=== PATIENT | female | born 1965 | race Caucasian/White ===

== ENCOUNTER 2016-06-15 17:43 | Inpatient (IN) | payer MEDICAID ==
[~2016-06-15] VITALS: Ht 157.5 cm; Wt 77.1 kg
[~2016-06-15 17:43] MED LIST: ATEN25TA PO; EPOE1VIA7 IV; GABA100C PO; MIRT15TA PO; NEOM15OI3 TP; VIT1TABL44 PO
[2016-06-15] MEDS ORDERED: ONDANSETRON HCL/PF 4 MG/2 ML VIAL IVP ONE (23:00)
[2016-06-15] MEDS ORDERED: IV NS 0.9% 1,000 ML BAG IV ONE (23:00)
[2016-06-15] MEDS ORDERED: IV NS 0.9% 1,000 ML ONE (23:07)
[2016-06-15] MEDS ORDERED: ONDANSETRON HCL/PF 4 MG/2 ML VIAL ONE (23:07)
[2016-06-15] MEDS ORDERED: IV SET PRIMARY 1 EA INFUS.SET MC ONE (23:07)
[2016-06-15 23:22] LABS: BASOPHILS # (AUTO) 0.1 /CMM (0.0-0.2); BASOPHILS % (AUTO) 0.9 % (0.0-2.0); DIFF TOTAL % 100 %; EOSINOPHILS % (AUTO) 0.2 % (0.0-6.0); HEMATOCRIT 30 % (33-45); HEMOGLOBIN 9.4 g/dL (11.5-14.8); LYMPHOCYTES # (AUTO) 2.1 /CMM (0.8-4.8); LYMPHOCYTES % (AUTO) 16.5 % (20.0-44.0); MEAN CORPUSCULAR HEMOGLOBIN 24 PG (26.0-33.0); MEAN CORPUSCULAR HGB CONC 31 g/dl (31.0-36.0); MEAN CORPUSCULAR VOLUME 76 fL (82-100); MONOCYTES % (AUTO) 7.8 % (2.0-12.0); NEUTROPHILS # (AUTO) 9.4 /CMM (1.8-8.9); NEUTROPHILS % (AUTO) 74.6 % (43.0-81.0); PLATELET COUNT (AUTO) 423 /CMM (150-450); RED BLOOD CELL COUNT(AUTO) 3.96 MIL/uL (4.0-5.2); WHITE BLOOD COUNT (AUTO) 12.6 K/uL (4.3-11.0)
[2016-06-15 23:33] LABS: CALCIUM, SERUM 8.7 mg/dL (8.5-10.1); CREATININE 2.4 mg/dL (0.6-1.3); POTASSIUM 4.6 mmol/L (3.5-5.1)
[2016-06-15 23:38] LABS: ALBUMIN 3.1 g/dL (3.4-5.0); BILIRUBIN,DIRECT 0.4 mg/dL (0.0-0.2); BILIRUBIN,TOTAL 1.1 mg/dL (0.2-1.0); INDIRECT BILIRUBIN 0.7 mg/dL (0.0-1.1); TOTAL PROTEIN, SERUM 7.2 g/dL (6.4-8.2)
[2016-06-15 23:58] LABS: KETONES,URINE NEGATIVE (NEGATIVE); LEUKOCYTE ESTERASE ,URINE TRACE (NEGATIVE)
[2016-06-16 00:03] LABS: ADD UA MICROSCOPIC YES
[2016-06-16 00:14] LABS: ADD URINE CULTURE YES
[2016-06-16] MEDS: CEFTRIAXONE 1 G in IV D5W 50 ML IV SCH (01:00)
[2016-06-16] MEDS ORDERED: MAG HYDROX/AL HYDROX/SIMETH 30 ML UDC PO PRN (01:00)
[2016-06-16] MEDS ORDERED: ONDANSETRON HCL/PF 4 MG/2 ML VIAL IVP PRN (01:00)
[2016-06-16] MEDS ORDERED: MAGNESIUM HYDROXIDE 30 ML UDC PO PRN (01:00)
[2016-06-16] MEDS ORDERED: ACETAMINOPHEN 325 MG TABLET PO PRN (01:00)
[2016-06-16] MEDS ORDERED: Z GUARD REMEDY 2 OZ OINT TP PRN (01:00)
[2016-06-16] MEDS ORDERED: ZOLPIDEM TARTRATE 5 MG TABLET PO PRN (01:00)
[2016-06-16] MEDS ORDERED: LORAZEPAM INJ 2 MG/ML VIAL ONE (01:24)
[2016-06-16] MEDS ORDERED: LORAZEPAM INJ 2 MG/ML VIAL IV ONE (01:30)
[2016-06-16 01:34] LABS: CANNABINOID, URINE NEGATIVE (NEGATIVE); INR 1.51 (0.87-1.13); PHENCYCLIDINE SCREEN,URINE NEGATIVE (NEGATIVE); PROTHROMBIN TIME 16.4 SECS (9.5-12.7)
[2016-06-16] MEDS ORDERED: FUROSEMIDE 20 MG/2 ML VIAL ONE (01:56)
[2016-06-16] MEDS ORDERED: FUROSEMIDE 20 MG/2 ML VIAL IV ONE (02:00)
[2016-06-16 02:59] VITALS: BP 107/56
[2016-06-16 03:24] LABS: ACETAMINOPHEN 4 ug/ml (10-30)
[2016-06-16] MEDS ORDERED: CEFTRIAXONE 1 G VIAL ONE (03:46)
[2016-06-16] MEDS ORDERED: IV D5W 50 ML IV ONE (03:47)
[2016-06-16] MEDS ORDERED: IV SET PRIMARY PUMP SET 1 EA INFUS.SET MC ONE ×2 (03:58→10:26)
[2016-06-16] MEDS ORDERED: SECONDARY IV SET 1 EA INFUS.SET MC ONE (03:58)
[2016-06-16] MEDS ORDERED: IV NS 0.9% 250 ML IV ONE (03:58)
[2016-06-16 05:25] VITALS: BP 154/111
[2016-06-16 08:00] VITALS: BP 151/86
[2016-06-16] MEDS ORDERED: IV NS 0.9% 1,000 ML IV ONE (10:30)
[2016-06-16] MEDS: NEOMY SULF/BACITRAC ZN/POLY 15 GM TUBE TP SCH (10:35)
[2016-06-16] MEDS: ATENOLOL 25 MG TABLET PO SCH (10:36)
[2016-06-16] MEDS: VIT B CMPLX 3/FA/VIT C/BIOTIN 1 TAB TABLET PO SCH (10:36)
[2016-06-16 12:00] VITALS: BP 131/114
[2016-06-16 16:00] VITALS: BP 158/103
[2016-06-16 20:00] VITALS: BP 143/101
[2016-06-16] MEDS: HYDROCODONE/APAP 5/325MG 1 EACH TABLET PO PRN (21:14)
[2016-06-16] MEDS: GABAPENTIN 100 MG CAPSULE PO SCH (21:42)
[2016-06-16] MEDS: MIRTAZAPINE 15 MG TABLET PO SCH (21:43)
[2016-06-16] MEDS ORDERED: IV NS 0.9% 0 ML ONE (21:55)
[2016-06-17] VITALS: BP_SYST 155; BP_SYST 156; BP_DIAS 100; BP_DIAS 99
[2016-06-17] MEDS: CEFTRIAXONE 1 G in IV D5W 50 ML IV SCH (00:39)
[2016-06-17 04:00] VITALS: BP 157/100
[2016-06-17] MEDS: HYDROCODONE/APAP 5/325MG 1 EACH TABLET PO PRN ×3 (04:47→16:04)
[2016-06-17 08:00] VITALS: BP 137/105
[2016-06-17 08:32] LABS: BASOPHILS # (AUTO) 0.1 /CMM (0.0-0.2); BASOPHILS % (AUTO) 1.2 % (0.0-2.0); DIFF TOTAL % 100 %; EOSINOPHILS % (AUTO) 0.3 % (0.0-6.0); HEMATOCRIT 31 % (33-45); HEMOGLOBIN 9.7 g/dL (11.5-14.8); LYMPHOCYTES # (AUTO) 1.9 /CMM (0.8-4.8); LYMPHOCYTES % (AUTO) 17.8 % (20.0-44.0); MEAN CORPUSCULAR HEMOGLOBIN 24 PG (26.0-33.0); MEAN CORPUSCULAR HGB CONC 31 g/dl (31.0-36.0); MEAN CORPUSCULAR VOLUME 77 fL (82-100); MONOCYTES % (AUTO) 9.5 % (2.0-12.0); NEUTROPHILS # (AUTO) 7.6 /CMM (1.8-8.9); NEUTROPHILS % (AUTO) 71.2 % (43.0-81.0); PLATELET COUNT (AUTO) 312 /CMM (150-450); RED BLOOD CELL COUNT(AUTO) 4.07 MIL/uL (4.0-5.2); WHITE BLOOD COUNT (AUTO) 10.7 K/uL (4.3-11.0)
[2016-06-17] MEDS: VIT B CMPLX 3/FA/VIT C/BIOTIN 1 TAB TABLET PO SCH (09:09)
[2016-06-17] MEDS: ATENOLOL 25 MG TABLET PO SCH (09:10)
[2016-06-17] MEDS: NEOMY SULF/BACITRAC ZN/POLY 15 GM TUBE TP SCH (09:18)
[2016-06-17 09:25] LABS: ALBUMIN 2.7 g/dL (3.4-5.0); BILIRUBIN,DIRECT 0.2 mg/dL (0.0-0.2); BILIRUBIN,TOTAL 0.6 mg/dL (0.2-1.0); CALCIUM, SERUM 8.3 mg/dL (8.5-10.1); CREATININE 2.4 mg/dL (0.6-1.3); INDIRECT BILIRUBIN 0.4 mg/dL (0.0-1.1); POTASSIUM 4.9 mmol/L (3.5-5.1); TOTAL PROTEIN, SERUM 6.6 g/dL (6.4-8.2)
[2016-06-17] MEDS: SEVELAMER CARBONATE 800 MG TABLET PO SCH ×2 (13:46→18:15)
[2016-06-17 16:00] VITALS: BP 140/89
[2016-06-17] MEDS: SODIUM BICARBONATE 650 MG TABLET PO SCH (18:15)
[2016-06-17 20:00] VITALS: BP 147/88
[2016-06-17 21:14] VITALS: BP 147/88
[2016-06-17] MEDS: GABAPENTIN 100 MG CAPSULE PO SCH (22:03)
[2016-06-17] MEDS: MIRTAZAPINE 15 MG TABLET PO SCH (22:04)
[2016-06-18] VITALS (7 sets, daily range): BP systolic 130–147; BP diastolic 77–98
[2016-06-18] MEDS: CEFTRIAXONE 1 G in IV D5W 50 ML IV SCH (01:01)
[2016-06-18] MEDS: HYDROCODONE/APAP 5/325MG 1 EACH TABLET PO PRN ×3 (01:04→18:01)
[2016-06-18] MEDS: SEVELAMER CARBONATE 800 MG TABLET PO SCH ×3 (09:07→17:00)
[2016-06-18] MEDS: SODIUM BICARBONATE 650 MG TABLET PO SCH ×2 (09:07→17:00)
[2016-06-18] MEDS: VIT B CMPLX 3/FA/VIT C/BIOTIN 1 TAB TABLET PO SCH (09:07)
[2016-06-18] MEDS: ATENOLOL 25 MG TABLET PO SCH (09:08)
[2016-06-18] MEDS: NEOMY SULF/BACITRAC ZN/POLY 15 GM TUBE TP SCH (09:09)
[2016-06-18] MEDS: EPOETIN ALFA (10,000 UNIT) 10,000 UNIT/ML VIAL IV SCH (16:58)
[2016-06-18] MEDS: QUETIAPINE FUMARATE 25 MG TABLET PO SCH (16:59)
[2016-06-18] MEDS ORDERED: HYDROMORPHONE MDV 1 MG in IV D5W 50 ML IV PRN (19:00)
[2016-06-18] MEDS ORDERED: HYDROMORPHONE 1 MG/1 ML DISP.SYRIN IV PRN (19:00)
[2016-06-18] MEDS ORDERED: ACETYLCYSTEINE IV 4,000 MG in IV D5W 500 ML IV ONE ×2 (20:00→22:00)
[2016-06-18] MEDS ORDERED: ACETYLCYSTEINE IV 12,000 MG in IV D5W 200 ML IV ONE (21:00)
[2016-06-18] MEDS ORDERED: IV SET PRIMARY PUMP SET 1 EA INFUS.SET MC ONE (21:35)
[2016-06-18] MEDS: GABAPENTIN 100 MG CAPSULE PO SCH (22:26)
[2016-06-18] MEDS: MIRTAZAPINE 15 MG TABLET PO SCH (22:27)
[2016-06-19] MEDS ORDERED: ACETYLCYSTEINE IV 8,000 MG in IV D5W 1,000 ML IV ONE (02:00)
[2016-06-19] MEDS: CEFTRIAXONE 1 G in IV D5W 50 ML IV SCH (02:45)
[2016-06-19 04:00] VITALS: BP 128/98
[2016-06-19 06:53] LABS: BASOPHILS % (AUTO) 0.1 % (0.0-2.0); DIFF TOTAL % 100 %; EOSINOPHILS # (AUTO) 0.1 /CMM (0.0-0.7); EOSINOPHILS % (AUTO) 0.8 % (0.0-6.0); HEMATOCRIT 33 % (33-45); HEMOGLOBIN 10.6 g/dL (11.5-14.8); LYMPHOCYTES # (AUTO) 1.7 /CMM (0.8-4.8); MEAN CORPUSCULAR HEMOGLOBIN 24 PG (26.0-33.0); MEAN CORPUSCULAR HGB CONC 32 g/dl (31.0-36.0); MEAN CORPUSCULAR VOLUME 76 fL (82-100); MONOCYTES # (AUTO) 0.7 /CMM (0.1-1.30); MONOCYTES % (AUTO) 6.3 % (2.0-12.0); NEUTROPHILS # (AUTO) 8.9 /CMM (1.8-8.9); NEUTROPHILS % (AUTO) 77.8 % (43.0-81.0); PLATELET COUNT (AUTO) 231 /CMM (150-450); RED BLOOD CELL COUNT(AUTO) 4.37 MIL/uL (4.0-5.2); WHITE BLOOD COUNT (AUTO) 11.4 K/uL (4.3-11.0)
[2016-06-19 07:27] LABS: CALCIUM, SERUM 8.4 mg/dL (8.5-10.1); POTASSIUM 4.1 mmol/L (3.5-5.1)
[2016-06-19 08:00] VITALS: BP_SYST 155; BP_SYST 158; BP_DIAS 90
[2016-06-19] MEDS: SODIUM BICARBONATE 650 MG TABLET PO SCH ×2 (08:43→17:50)
[2016-06-19] MEDS: VIT B CMPLX 3/FA/VIT C/BIOTIN 1 TAB TABLET PO SCH (08:43)
[2016-06-19] MEDS: SEVELAMER CARBONATE 800 MG TABLET PO SCH ×3 (08:43→17:50)
[2016-06-19] MEDS: QUETIAPINE FUMARATE 25 MG TABLET PO SCH ×2 (08:44→17:50)
[2016-06-19] MEDS: ATENOLOL 25 MG TABLET PO SCH (08:45)
[2016-06-19] MEDS: NEOMY SULF/BACITRAC ZN/POLY 15 GM TUBE TP SCH (08:46)
[2016-06-19 16:00] VITALS: BP 143/102
[2016-06-19 16:35] VITALS: BP 143/102
[2016-06-19] MEDS: LACTULOSE 10 G/15 ML UDC (PYXIS) PO SCH (17:51)
[2016-06-19 20:00] VITALS: BP 164/63
[2016-06-19] MEDS: GABAPENTIN 100 MG CAPSULE PO SCH (21:27)
[2016-06-19 22:00] VITALS: BP 164/63
[2016-06-20] MEDS: CEFTRIAXONE 1 G in IV D5W 50 ML IV SCH (01:00)
[2016-06-20 06:20] LABS: HEPATITIS C VIRUS AB 0.2 s/co ratio (0.0-0.9)
[2016-06-20 07:44] LABS: ALBUMIN 2.4 g/dL (3.4-5.0); BILIRUBIN,DIRECT 0.1 mg/dL (0.0-0.2); BILIRUBIN,TOTAL 0.4 mg/dL (0.2-1.0); INDIRECT BILIRUBIN 0.3 mg/dL (0.0-1.1); TOTAL PROTEIN, SERUM 6.4 g/dL (6.4-8.2)
[2016-06-20 08:00] VITALS: BP 144/99
[2016-06-20] MEDS: SEVELAMER CARBONATE 800 MG TABLET PO SCH ×3 (09:19→18:11)
[2016-06-20] MEDS: QUETIAPINE FUMARATE 25 MG TABLET PO SCH ×2 (09:19→18:11)
[2016-06-20] MEDS: SODIUM BICARBONATE 650 MG TABLET PO SCH ×2 (09:20→18:11)
[2016-06-20] MEDS: ATENOLOL 25 MG TABLET PO SCH (09:20)
[2016-06-20] MEDS: VIT B CMPLX 3/FA/VIT C/BIOTIN 1 TAB TABLET PO SCH (09:20)
[2016-06-20] MEDS: LACTULOSE 10 G/15 ML UDC (PYXIS) PO SCH ×3 (09:20→17:00)
[2016-06-20] MEDS: NEOMY SULF/BACITRAC ZN/POLY 15 GM TUBE TP SCH (09:21)
[2016-06-20 14:50] LABS: BASOPHILS % (AUTO) 0.4 % (0.0-2.0); DIFF TOTAL % 100 %; EOSINOPHILS # (AUTO) 0.2 /CMM (0.0-0.7); EOSINOPHILS % (AUTO) 2.3 % (0.0-6.0); HEMATOCRIT 33 % (33-45); LYMPHOCYTES # (AUTO) 1.3 /CMM (0.8-4.8); LYMPHOCYTES % (AUTO) 12.2 % (20.0-44.0); MEAN CORPUSCULAR HEMOGLOBIN 24 PG (26.0-33.0); MEAN CORPUSCULAR HGB CONC 30 g/dl (31.0-36.0); MEAN CORPUSCULAR VOLUME 77 fL (82-100); MONOCYTES # (AUTO) 0.8 /CMM (0.1-1.30); MONOCYTES % (AUTO) 7.6 % (2.0-12.0); NEUTROPHILS # (AUTO) 8.3 /CMM (1.8-8.9); NEUTROPHILS % (AUTO) 77.5 % (43.0-81.0); PLATELET COUNT (AUTO) 229 /CMM (150-450); RED BLOOD CELL COUNT(AUTO) 4.25 MIL/uL (4.0-5.2); WHITE BLOOD COUNT (AUTO) 10.7 K/uL (4.3-11.0)
[2016-06-20 16:00] VITALS: BP 157/91
[2016-06-20] MEDS: EPOETIN ALFA (10,000 UNIT) 10,000 UNIT/ML VIAL IV SCH (16:24)
[2016-06-20 20:00] VITALS: BP 144/87
[2016-06-20] MEDS: GABAPENTIN 100 MG CAPSULE PO SCH (22:08)
[2016-06-21] MEDS: CEFTRIAXONE 1 G in IV D5W 50 ML IV SCH (00:55)
[2016-06-21 08:00] VITALS: BP 173/93
[2016-06-21] MEDS: SEVELAMER CARBONATE 800 MG TABLET PO SCH ×4 (08:00→17:49)
[2016-06-21] MEDS: VIT B CMPLX 3/FA/VIT C/BIOTIN 1 TAB TABLET PO SCH ×2 (08:13→08:19)
[2016-06-21] MEDS: QUETIAPINE FUMARATE 25 MG TABLET PO SCH ×2 (08:13→17:48)
[2016-06-21] MEDS: SODIUM BICARBONATE 650 MG TABLET PO SCH ×3 (08:14→17:00)
[2016-06-21] MEDS: LACTULOSE 10 G/15 ML UDC (PYXIS) PO SCH ×4 (08:14→17:00)
[2016-06-21] MEDS: ATENOLOL 25 MG TABLET PO SCH (08:14)
[2016-06-21] MEDS: NEOMY SULF/BACITRAC ZN/POLY 15 GM TUBE TP SCH (08:15)
[2016-06-21 08:19] LABS: *ANAANTI-SCLERODERMA-70 AB <0.2 AI (0.0-0.9)
[2016-06-21 10:00] LABS: IRON, SERUM 16 ug/dl (50-175); PERCENT SATURATION 6 % (14-33); TOTAL IRON BINDING CAPACITY 251 ug/dl (250-450)
[2016-06-21 10:10] VITALS: BP 145/101
[2016-06-21] MEDS: TRAMADOL HCL 50 MG TABLET PO PRN (17:49)
[2016-06-21 20:23] VITALS: BP 143/104
[2016-06-21] MEDS: GABAPENTIN 100 MG CAPSULE PO SCH (22:01)
[2016-06-22 08:00] VITALS: BP 159/107
[2016-06-22] MEDS: SEVELAMER CARBONATE 800 MG TABLET PO SCH ×3 (08:00→17:04)
[2016-06-22] MEDS: VIT B CMPLX 3/FA/VIT C/BIOTIN 1 TAB TABLET PO SCH (09:00)
[2016-06-22] MEDS: SODIUM BICARBONATE 650 MG TABLET PO SCH ×2 (09:00→17:00)
[2016-06-22] MEDS: NEOMY SULF/BACITRAC ZN/POLY 15 GM TUBE TP SCH (09:00)
[2016-06-22] MEDS: LACTULOSE 10 G/15 ML UDC (PYXIS) PO SCH ×3 (09:00→17:00)
[2016-06-22] MEDS: ATENOLOL 25 MG TABLET PO SCH (09:14)
[2016-06-22] MEDS: QUETIAPINE FUMARATE 25 MG TABLET PO SCH ×2 (09:14→17:00)
[2016-06-22] MEDS: TRAMADOL HCL 50 MG TABLET PO PRN (12:18)
[2016-06-22 15:28] LABS: HEMOGLOBIN 10.8 g/dL (11.5-14.8)
[2016-06-22 16:00] VITALS: BP 163/117
[2016-06-22 20:00] VITALS: BP 152/109
[2016-06-22] MEDS: GABAPENTIN 100 MG CAPSULE PO SCH (21:34)
[2016-06-23] MEDS: CEFTRIAXONE 1 G in IV D5W 50 ML IV SCH (01:00)
[2016-06-23] MEDS: TRAMADOL HCL 50 MG TABLET PO PRN (04:22)
[2016-06-23 08:00] VITALS: BP_SYST 120; BP_SYST 165; BP_DIAS 114; BP_DIAS 73
[2016-06-23] MEDS: SEVELAMER CARBONATE 800 MG TABLET PO SCH ×3 (08:47→18:00)
[2016-06-23] MEDS: LACTULOSE 10 G/15 ML UDC (PYXIS) PO SCH ×3 (09:00→17:00)
[2016-06-23] MEDS: VIT B CMPLX 3/FA/VIT C/BIOTIN 1 TAB TABLET PO SCH (09:00)
[2016-06-23] MEDS: SODIUM BICARBONATE 650 MG TABLET PO SCH ×2 (09:00→17:00)
[2016-06-23] MEDS: QUETIAPINE FUMARATE 25 MG TABLET PO SCH ×2 (10:41→17:00)
[2016-06-23] MEDS: ATENOLOL 25 MG TABLET PO SCH (10:43)
[2016-06-23] MEDS: NEOMY SULF/BACITRAC ZN/POLY 15 GM TUBE TP SCH (10:45)
[2016-06-23 16:00] VITALS: BP 168/119
[2016-06-23] MEDS: GABAPENTIN 100 MG CAPSULE PO SCH (21:22)
[2016-06-23 21:51] VITALS: BP 154/111
[2016-06-24] MEDS: CEFTRIAXONE 1 G in IV D5W 50 ML IV SCH (01:00)
[2016-06-24 08:00] VITALS: BP 160/123
[2016-06-24] MEDS: SEVELAMER CARBONATE 800 MG TABLET PO SCH ×3 (08:00→17:05)
[2016-06-24] MEDS: VIT B CMPLX 3/FA/VIT C/BIOTIN 1 TAB TABLET PO SCH (08:39)
[2016-06-24] MEDS: LACTULOSE 10 G/15 ML UDC (PYXIS) PO SCH ×3 (08:39→16:20)
[2016-06-24] MEDS: SODIUM BICARBONATE 650 MG TABLET PO SCH ×2 (08:40→16:21)
[2016-06-24] MEDS: QUETIAPINE FUMARATE 25 MG TABLET PO SCH ×2 (08:40→16:20)
[2016-06-24] MEDS: NEOMY SULF/BACITRAC ZN/POLY 15 GM TUBE TP SCH (08:40)
[2016-06-24] MEDS: ATENOLOL 25 MG TABLET PO SCH (08:41)
[2016-06-24] MEDS: HYDROCODONE/APAP 5/325MG 1 EACH TABLET PO PRN (13:05)
[2016-06-24 16:31] VITALS: BP 143/107
[2016-06-24 20:00] VITALS: BP 148/99
[2016-06-24] MEDS: GABAPENTIN 100 MG CAPSULE PO SCH (22:43)
[2016-06-25] MEDS: CEFTRIAXONE 1 G in IV D5W 50 ML IV SCH (01:00)
[2016-06-25 08:00] VITALS: BP 146/107
[2016-06-25] MEDS: SEVELAMER CARBONATE 800 MG TABLET PO SCH ×3 (08:00→17:24)
[2016-06-25] MEDS: QUETIAPINE FUMARATE 25 MG TABLET PO SCH ×2 (08:32→16:24)
[2016-06-25] MEDS: NEOMY SULF/BACITRAC ZN/POLY 15 GM TUBE TP SCH (08:32)
[2016-06-25] MEDS: SODIUM BICARBONATE 650 MG TABLET PO SCH ×2 (08:32→16:24)
[2016-06-25] MEDS: LACTULOSE 10 G/15 ML UDC (PYXIS) PO SCH ×3 (08:32→16:24)
[2016-06-25] MEDS: VIT B CMPLX 3/FA/VIT C/BIOTIN 1 TAB TABLET PO SCH (08:32)
[2016-06-25] MEDS: ATENOLOL 25 MG TABLET PO SCH (08:34)
[2016-06-25] MEDS: HYDROCODONE/APAP 5/325MG 1 EACH TABLET PO PRN (13:35)
[2016-06-25 16:00] VITALS: BP_SYST 151; BP_SYST 157; BP_DIAS 105
[2016-06-25 20:00] VITALS: BP 164/99
[2016-06-25] MEDS: GABAPENTIN 100 MG CAPSULE PO SCH (21:19)
[2016-06-26] MEDS: HYDROCODONE/APAP 5/325MG 1 EACH TABLET PO PRN (02:59)
[2016-06-26] MEDS: SEVELAMER CARBONATE 800 MG TABLET PO SCH ×2 (07:57→13:00)
[2016-06-26 08:00] VITALS: BP 165/80
[2016-06-26] MEDS: LACTULOSE 10 G/15 ML UDC (PYXIS) PO SCH ×2 (08:48→13:00)
[2016-06-26] MEDS: NEOMY SULF/BACITRAC ZN/POLY 15 GM TUBE TP SCH (08:49)
[2016-06-26] MEDS: QUETIAPINE FUMARATE 25 MG TABLET PO SCH (08:49)
[2016-06-26] MEDS: VIT B CMPLX 3/FA/VIT C/BIOTIN 1 TAB TABLET PO SCH (08:49)
[2016-06-26] MEDS: SODIUM BICARBONATE 650 MG TABLET PO SCH (08:49)
[2016-06-26] MEDS: ATENOLOL 25 MG TABLET PO SCH (08:49)
== END 2016-06-26 14:20 | disposition home or self-care (01) ==
LOC: ER 17:45 → MED 06-16 → TELE 06-16 05:03 → MED 06-17 12:45
PROVIDERS: ADMIT Family Medicine; ATTEND Family Medicine
DX: K71.2 Toxic liver disease with acute hepatitis (principal); I13.2 Hypertensive heart and chronic kidney disease with heart failure and with stage 5 chronic kidney disease, or end stage renal disease; G92 Toxic encephalopathy; E43 Unspecified severe protein-calorie malnutrition; N18.6 End stage renal disease; E87.2 Acidosis; F17.210 Nicotine dependence, cigarettes, uncomplicated; D50.9 Iron deficiency anemia, unspecified; E11.22 Type 2 diabetes mellitus with diabetic chronic kidney disease; N39.0 Urinary tract infection, site not specified; I50.32 Chronic diastolic (congestive) heart failure; Z99.2 Dependence on renal dialysis; E83.39 Other disorders of phosphorus metabolism; E87.1 Hypo-osmolality and hyponatremia; I25.10 Atherosclerotic heart disease of native coronary artery without angina pectoris; Z59.0 Homelessness; Z86.73 Personal history of transient ischemic attack (TIA), and cerebral infarction without residual deficits; Z91.19 Patient's noncompliance with other medical treatment and regimen; I25.2 Old myocardial infarction; R74.0 Nonspecific elevation of levels of transaminase and lactic acid dehydrogenase [LDH]; E88.09 Other disorders of plasma-protein metabolism, not elsewhere classified; M62.50 Muscle wasting and atrophy, not elsewhere classified, unspecified site; T39.1X5A Adverse effect of 4-Aminophenol derivatives, initial encounter; Y92.9 Unspecified place or not applicable; Z68.31 Body mass index [BMI] 31.0-31.9, adult; F12.90 Cannabis use, unspecified, uncomplicated; F33.1 Major depressive disorder, recurrent, moderate; Y92.009 Unspecified place in unspecified non-institutional (private) residence as the place of occurrence of the external cause
CPT/HCPCS: 36415; 73030-TC; 76705-TC; 80048-TC; 80061-TC; 80076-TC; 81000-TC; 82140-TC; 83516; 83540-TC; 83690-TC; 83735-TC; 84100-TC; 85025-TC; 85027-TC; 85610-TC; 85730-TC; 86225; 86235; 86705; 86706; 86709; 86803; 87081-TC; 87086-TC; 87340; 93976-TC; 94799-TC; 97001-TC; 97110-TC; A4606; G0434; G6039-TC; J0132; J0696; J0885; J1170; J1940; J2060; J2405; J7030; J7050; J7060; J7070; Z7610

== ENCOUNTER 2017-08-11 20:01 | Inpatient (IN) | payer MEDICAID ==
[~2017-08-11] VITALS: Ht 165.1 cm; Wt 60.3 kg
[~2017-08-11 20:01] MED LIST changes: -EPOE1VIA7 IV; -NEOM15OI3 TP; -VIT1TABL44 PO
--- NOTE | 2017-08-11 20:01 | NUR ---
BBRA FROM STREETS PT C/O BURNING SENSATION ON THE BUTTOCKS FOR PROLONGED ON WHEELCHAIR. NO SOB AT THIS MOMENT BUT PAIN 02/24. A/OX3 TACHYCARDIC UPON ARRIVAL BUT OTHERWISE VSS. PT IS VERY AGITATED SCREAMING W/ FOUL ODOR. WILL CONTINUE TO MONITOR FOR ANY CHANGES DURING THE SHIFT.
[2017-08-11] MEDS ORDERED: IV NS 0.9% 1,000 ML BAG IV ONE (20:30)
[2017-08-11] MEDS ORDERED: ONDANSETRON HCL/PF 4 MG/2 ML VIAL IVP ONE (20:30)
[2017-08-11] MEDS ORDERED: MORPHINE SULFATE INJ 2 MG/ML DISP.SYRIN IV ONE (20:30)
--- NOTE | 2017-08-11 20:30 | NUR ---
CLEANED PATIENT OF FECES AMONG OTHER SKIN ISSUES ON BODY. IN/OUT CATH FOR URINE WAS CARRIED OUT WELL
[2017-08-11] MEDS ORDERED: diphenhydrAMINE HCL 50 MG/ML VIAL ONE (20:46)
[2017-08-11] MEDS ORDERED: HALOPERIDOL LACTATE INJ 5 MG/ML VIAL ONE (20:46)
[2017-08-11 20:47] LABS: BASOPHILS # (AUTO) 0.1 /CMM (0.0-0.2); BASOPHILS % (AUTO) 0.7 % (0.0-2.0); EOSINOPHILS # (AUTO) 0.2 /CMM (0.0-0.7); EOSINOPHILS % (AUTO) 1.3 % (0.0-6.0); HEMATOCRIT 34 % (33-45); HEMOGLOBIN 11.2 g/dL (11.5-14.8); LYMPHOCYTES # (AUTO) 1.5 /CMM (0.8-4.8); LYMPHOCYTES % (AUTO) 12.9 % (20.0-44.0); MEAN CORPUSCULAR HEMOGLOBIN 24 PG (26.0-33.0); MEAN CORPUSCULAR HGB CONC 33 g/dl (31.0-36.0); MEAN CORPUSCULAR VOLUME 74 fL (82-100); MONOCYTES # (AUTO) 0.6 /CMM (0.1-1.30); MONOCYTES % (AUTO) 5.4 % (2.0-12.0); NEUTROPHILS # (AUTO) 9.6 /CMM (1.8-8.9); NEUTROPHILS % (AUTO) 79.7 % (43.0-81.0); PLATELET COUNT (AUTO) 676 /CMM (150-450); RDW COEFFICIENT OF VARIATION 15.8 (11.5-15.0); RED BLOOD CELL COUNT(AUTO) 4.61 MIL/uL (4.0-5.2)
[2017-08-11 20:55] LABS: CALCIUM, SERUM 9.1 mg/dL (8.5-10.1); CREATININE 1.4 mg/dL (0.6-1.3); INR 1.05 (0.85-1.15); POTASSIUM 4.2 mmol/L (3.5-5.1)
[2017-08-11] MEDS ORDERED: HALOPERIDOL LACTATE INJ 5 MG/ML VIAL IM ONE (21:00)
[2017-08-11] MEDS ORDERED: diphenhydrAMINE HCL 50 MG/ML VIAL IM ONE (21:00)
[2017-08-11 21:01] LABS: APPEARANCE,URINE Clear (CLEAR); BILIRUBIN,URINE Negative (NEGATIVE); BLOOD, URINE Trace-lysed Ery/uL (NEGATIVE); COLOR,URINE Yellow (YELLOW); KETONES,URINE Negative (NEGATIVE); LEUKOCYTE ESTERASE ,URINE Negative (NEGATIVE); NITRITE, URINE Positive (NEGATIVE); PROTEIN,URINE Negative (NEGATIVE); UGLUCOSE Negative (NEGATIVE); UROBILINOGEN,URINE 0.2 EU/dL (0.2)
[2017-08-11 21:07] LABS: ALBUMIN 2.9 g/dL (3.4-5.0); BILIRUBIN,DIRECT 0.2 mg/dL (0.0-0.2); BILIRUBIN,TOTAL 0.6 mg/dL (0.2-1.0); TOTAL PROTEIN, SERUM 8.3 g/dL (6.4-8.2)
[2017-08-11 21:14] LABS: SQUAMOUS EPITHELIAL CELL,UR Few /HPF (None Seen)
[2017-08-11 21:16] LABS: BACTERIA,URINE Many /HPF (None Seen); URINE AMORPHOUS URATE Many /HPF (None Seen)
[2017-08-11] MEDS ORDERED: CEFTRIAXONE 2 G in IV D5W 50 ML IV ONE (21:30)
[2017-08-11] MEDS ORDERED: CEFTRIAXONE 1 G VIAL ONE (21:33)
--- NOTE | 2017-08-11 22:00 | NUR ---
PAGED EPIC FOR PANEL
--- NOTE | 2017-08-11 22:04 | NUR ---
FRUIT PITTER AT BEDSIDE FOR BLOOD DRAW
[2017-08-11 22:06] LABS: LYMPHOCYTES % (MANUAL) 17 % (16-48); MONOCYTES % (MANUAL) 3 % (0-11.0); NEUTROPHILS % (MANUAL) 80 (42-76)
--- NOTE | 2017-08-11 22:09 | NUR ---
CALLED NURSE SUP FOR MESURG BED
--- NOTE | 2017-08-11 22:28 | NUR ---
REPORT GIVEN TO LEIDY
[2017-08-11 23:00] VITALS: BP_SYST 117; BP_DIAS 76; BP_DIAS 78
--- NOTE | 2017-08-11 23:00 | NUR ---
MS MASTER MECHANIC NOTES ADMITTED 51 YO FEMALE HOMELESS PT ALERT, AWAKE, VERBALLY RESPONSIVE, ON ROOM AIR, RESPIRATIONS EVEN, UNLABORED, NO APPARENT DISTRESS NOTED. BODY ASSESSMENT DONE, NOTED MULTIPLE EXCORIATIONS.IV SITE RT AC INTACT, PATENT. DENIES ANY PAIN OR DISCOMFORT AT THIS TIME. BED LOCKED IN LOWEST POSITION, KEPT CLEAN AND COMFORTABLE, ATTENDED ALL NEEDS. WILL CONTINUE TO MONITOR ACCORDINGLY.
[2017-08-12] MEDS ORDERED: ONDANSETRON HCL/PF 4 MG/2 ML VIAL IVP PRN (00:30)
[2017-08-12] MEDS ORDERED: Z GUARD REMEDY 2 OZ OINT TP PRN (00:30)
[2017-08-12] MEDS ORDERED: MAGNESIUM HYDROXIDE 30 ML UDC PO PRN (00:30)
[2017-08-12] MEDS ORDERED: ACETAMINOPHEN 325 MG TABLET PO PRN (00:30)
[2017-08-12] MEDS ORDERED: MAG HYDROX/AL HYDROX/SIMETH 30 ML UDC PO PRN (00:30)
[2017-08-12] MEDS ORDERED: ZOLPIDEM TARTRATE 5 MG TABLET PO PRN (00:30)
[2017-08-12] MEDS: IV NS 0.9% 1,000 ML IV PRN ×2 (01:50→15:20)
[2017-08-12] MEDS: HYDROCODONE/APAP 5/325MG 1 EACH TABLET PO PRN ×2 (02:39→17:11)
--- NOTE | 2017-08-12 06:53 | NUR ---
MS RN CLOSING NOTES PT IN BED RESTING COMFORTABLY, ON ROOM AIR, RESPIRATIONS EVEN, UNLABORED. DENIES ANY PAIN OR DISCOMFORT AT THIS TIME, IV SITE LT AC INTACT, PATENT.CALL LIGHT WITHIN REACH. BED LOCKED IN LOWEST POSITION. KEPT CLEAN AND COMFORTABLE.ATTENDED ALL NEEDS. WILL CONTINUE TO MONITOR ACCORDINGLY
--- NOTE | 2017-08-12 07:05 | NUR ---
RN NOTES PT IS LAYING DOWN IN BED, ASLEEP. PT ON RA, RESPIRATIONS ARE EVEN AND UNLABORED. IV ON LAC INTACT AND RUNNING NS @ 75ML/HR. NO SIGNS OF DISTRESS NOTED. SAFETY MEASURES ARE IN PLACE, CALL LIGHT IS IN REACH. WILL CONTINUE TO MONITOR.
[2017-08-12 08:00] VITALS: BP 131/93
--- NOTE | 2017-08-12 15:53 | NUR ---
Social service consult requested by Dr. Valencia for homelessness. Pt. is a 51 year old female who was admitted to [facility] for renal insufficiency and UTI. SW and case reviewer Harsha met with pt. bedside. Pt. is alert and oriented x 3. SW is familiar with pt. from previous admissions. Pt. is homeless and resides at a [place] station. Pt. is non-ambulatory and wheelchair bound. Pt. states that she cannot talk at this time because she is in lot of pain. SW to reassess pt. when she is more cooperative to discuss discharge plan.
[2017-08-12 16:00] VITALS: BP 127/83
--- NOTE | 2017-08-12 18:26 | NUR ---
RN NOTES PT IS LAYING DOWN IN BED, ALERT AND ORIENTED X3. PT ON RA, RESPIRATIONS ARE EVEN AND UNLABORED. IV ON LAC INTACT AND RUNNING NS @ 75ML/HR. PT PROVIDED WITH SKIN CARE AND LOTRIMIN CREAM ORDERED FOR EXCORIATIONS ON GROIN AND THIGHS. NORCO WAS GIVEN LAST @ 1711 FOR PAIN. PT REPOSITIONED Q2HRS AND NEEDED. SAFETY MEASURES ARE IN PLACE, CALL LIGHT IS IN REACH. WILL ENDORSE TO CHIP BIN CONVEYOR TENDER RN FOR CONTINUITY OF CARE.
[2017-08-12] MEDS: CLOTRIMAZOLE 1% 15 GM TUBE TP SCH (18:41)
--- NOTE | 2017-08-12 19:15 | NUR ---
RN OPENING NOTES PT AWAKE AND RESTING IN BED NO COMPLAINTS OF PAIN, SOB OR DISTRESS AT THIS TIME. PT HAS A LEFT AC IV #18 RUNNING NS @ 75ML/HR, PT TOLERATING FLUID WELL. SAFETY PRECAUTIONS IN PLACE. BED IN LOW, LOCKED POSITION, X2 SIDE RAILS UP AND CALL LIGHT WITHIN REACH. WILL CONTINUE TO MONITOR.
--- NOTE | 2017-08-12 19:30 | NUR ---
RN NOTES PT REFUSED WOUND CARE CONSULT.
[2017-08-12 20:00] VITALS: BP 121/76
[2017-08-12] MEDS: CEFTRIAXONE 1 G in IV NS 0.9% 50 ML IV SCH (20:22)
[2017-08-12 20:24] LABS: IRON, SERUM 19 ug/dl (50-175); TOTAL IRON BINDING CAPACITY 177 ug/dl (250-450)
[2017-08-12 20:40] LABS: FERRITIN 95 ng/mL (8-388)
[2017-08-13] MEDS: HYDROCODONE/APAP 5/325MG 1 EACH TABLET PO PRN ×5 (01:16→23:27)
--- NOTE | 2017-08-13 01:16 | NUR ---
RN NOTES PT COMPLAINED OF BACK PAIN. ADMINISTERED PRN NORCO 5 325MG. WILL CONTINUE TO MONITOR.
[2017-08-13] MEDS: IV NS 0.9% 1,000 ML IV PRN ×2 (05:25→20:38)
--- NOTE | 2017-08-13 07:05 | NUR ---
RN NOTES PT IS LAYING DOWN IN BED, SLEEPING. PT ON RA, RESPIRATIONS ARE EVEN AND UNLABORED. IV ON LAC INTACT AND RUNNING NS @ 75ML/HR. NO SIGNS OF DISTRESS NOTED. SAFETY MEASURES ARE IN PLACE, CALL LIGHT IS IN REACH. WILL CONTINUE TO MONITOR.
--- NOTE | 2017-08-13 07:30 | NUR ---
RN CLOSING NOTES PT AWAKE IN BED. PT REQUESTED TO BE TURNED CONTINUOUSLY. PT REFUSED LAB BLOOD DRAW. PT HAS A LEFT AC IV #18 RUNNING NS @ 75ML/HR, PT TOLERATING FLUID WELL. SAFETY PRECAUTIONS IN PLACE. BED IN LOW, LOCKED POSITION, X2 SIDE RAILS UP AND CALL LIGHT WITHIN REACH. PT NEEDS MET. WILL ENDORSE TO DAY SHIFT NURSE FOR CONTINUITY OF CARE.
[2017-08-13 08:00] VITALS: BP 143/75
[2017-08-13] MEDS: CLOTRIMAZOLE 1% 15 GM TUBE TP SCH ×2 (08:08→16:20)
--- NOTE | 2017-08-13 11:23 | NUR ---
SW and therapeutic case manager met with pt. bedside. community marketing manager Roxana Dudley contacted SW stating that pt. is refusing to participate with physical therapy at this time. SW along with therapeutic case manager and physical therapy met with pt. bedside. SW encouraged pt. to participate with the therapist. Pt. did attempt and was in a lot of pain. community marketing manager Roxana Dudley to assist with placement.
[2017-08-13 12:02] LABS: BASOPHILS # (AUTO) 0.1 /CMM (0.0-0.2); BASOPHILS % (AUTO) 1.1 % (0.0-2.0); EOSINOPHILS # (AUTO) 0.2 /CMM (0.0-0.7); EOSINOPHILS % (AUTO) 2.9 % (0.0-6.0); HEMATOCRIT 31 % (33-45); HEMOGLOBIN 10.3 g/dL (11.5-14.8); LYMPHOCYTES # (AUTO) 1.2 /CMM (0.8-4.8); LYMPHOCYTES % (AUTO) 15.8 % (20.0-44.0); MEAN CORPUSCULAR HEMOGLOBIN 25 PG (26.0-33.0); MEAN CORPUSCULAR HGB CONC 33 g/dl (31.0-36.0); MEAN CORPUSCULAR VOLUME 75 fL (82-100); MONOCYTES # (AUTO) 0.4 /CMM (0.1-1.30); MONOCYTES % (AUTO) 5.6 % (2.0-12.0); NEUTROPHILS # (AUTO) 5.7 /CMM (1.8-8.9); NEUTROPHILS % (AUTO) 74.6 % (43.0-81.0); PLATELET COUNT (AUTO) 484 /CMM (150-450); RDW COEFFICIENT OF VARIATION 17.3 (11.5-15.0); RED BLOOD CELL COUNT(AUTO) 4.19 MIL/uL (4.0-5.2); WHITE BLOOD COUNT (AUTO) 7.7 K/uL (4.3-11.0)
[2017-08-13 12:14] LABS: CALCIUM, SERUM 8.9 mg/dL (8.5-10.1); CREATININE 0.7 mg/dL (0.6-1.3); MAGNESIUM 1.5 mg/dL (1.8-2.4); POTASSIUM 3.7 mmol/L (3.5-5.1)
[2017-08-13 12:26] LABS: PHOSPHORUS 3.6 mg/dL (2.5-4.9)
[2017-08-13 12:36] LABS: THYROID STIMULATING HORMONE 2.464 uIU/mL (0.358-3.74)
[2017-08-13] MEDS ORDERED: QUETIAPINE FUMARATE 25 MG TABLET PO PRN (14:30)
[2017-08-13 16:00] VITALS: BP 160/83
--- NOTE | 2017-08-13 17:00 | NUR ---
RN NOTES PT REFUSED TO BE CHANGED THROUGHOUT THE DAY WHEN ASKED, STATES SHE JUST WANTS TO SLEEP. PT WAS VERY SOILED AND FINALLY AGREED TO BE CHANGED AND IS CLEAN AND DRY, LOTRIMIN CREAM APPLIED.
[2017-08-13] MEDS ORDERED: MAGNESIUM OXIDE 400 MG TABLET PO ONE (18:00)
--- NOTE | 2017-08-13 18:16 | NUR ---
RN NOTES PT STATES SHE DOESNT WANT TO EAT DINNER YET BECAUSE SHE WANTS THE PAIN MEDICATION TO KICK IN FIRST. PT DOES NOT WANT DINNER TRAY REMOVED.
--- NOTE | 2017-08-13 18:30 | NUR ---
RN NOTES PT IS LAYING DOWN IN BED, RESTING COMFORTABLY. PT ON RA, RESPIRATIONS ARE EVEN AND UNLABORED. NORCO GIVEN @ 1726 FOR PAIN MANAGEMENT. ALL MEDS WERE GIVEN ORDERED AND PT CHANGED AND LOTRIMIN CREAM APPLIED. IV ON LFA INTACT AND RUNNING NS @ 75ML/HR. SAFETY MEASURES ARE IN PLACE, CALL LIGHT IS IN REACH. WILL ENDORSE TO COLOR SPRAYER RN FOR CONTINUITY OF CARE.
--- NOTE | 2017-08-13 19:15 | NUR ---
RN OPENING NOTES PT RESTING IN BED. NO COMPLAINTS OF PAIN, SOB, OR DISTRESS. PT HAS A LEFT FA IV #22 RUNNING NS @ 75ML/HR, PT TOLERATING FLUID WELL. SAFETY PRECAUTIONS IN PLACE. BED IN LOW, LOCKED POSITION, X2 SIDE RAILS UP AND CALL LIGHT WITHIN REACH. WILL CONTINUE TO MONITOR.
[2017-08-13 20:00] VITALS: BP 111/69
[2017-08-13] MEDS: CEFTRIAXONE 1 G in IV NS 0.9% 50 ML IV SCH (20:38)
[2017-08-13] MEDS: MUPIROCIN OINT 2% 22 GM TUBE SCH (20:40)
--- NOTE | 2017-08-13 23:27 | NUR ---
RN NOTES PT REQUESTED PRN PAIN MEDICATION. WILL ADMINISTER PRN NORCO [phone] AND CONTINUE TO MONITOR.
[2017-08-14] MEDS: HYDROCODONE/APAP 5/325MG 1 EACH TABLET PO PRN ×3 (05:51→20:40)
--- NOTE | 2017-08-14 05:51 | NUR ---
RN NOTES PT REQUESTED PRN PAIN MEDICATION. WILL ADMINISTER PRN NORCO [phone] AND CONTINUE TO MONITOR.
--- NOTE | 2017-08-14 07:00 | NUR ---
RN CLOSING NOTES PT RESTING IN BED. FEWER REQUESTS TO BE TURNED OVERNIGHT. NO COMPLAINTS OF PAIN, SOB, OR DISTRESS. PT HAS A LEFT FA IV #22 RUNNING NS @ 75ML/HR, PT TOLERATING FLUID WELL. SAFETY PRECAUTIONS IN PLACE. BED IN LOW, LOCKED POSITION, X2 SIDE RAILS UP AND CALL LIGHT WITHIN REACH. WILL ENDORSE TO DAY SHIFT NURSE FOR CONTINUITY OF CARE.
--- NOTE | 2017-08-14 07:10 | NUR ---
RN NOTES PATIENT RESTING IN BED. NONLABORED BREATHING NOTED ON ROOM AIR. PATIENT AOX4. DENIES PAIN. IV SITE ON LEFT FOREARM PATENT AND INTACT. NO AGITATION NOTED. BED IN LOWEST LOCKED POSITION. CALL LIGHT WITHIN REACH. WILL CONTINUE TO MONITOR Addendum: 08/15/17 at 1946 by ARI GROVE RN PATIENT AOX2-3
[2017-08-14 08:00] VITALS: BP 153/95
[2017-08-14] MEDS: BOOST PLUS FOOD-CHOCLATE 237 ML BOX PO SCH ×2 (08:50→17:41)
[2017-08-14] MEDS: CLOTRIMAZOLE 1% 15 GM TUBE TP SCH ×2 (10:15→17:42)
[2017-08-14] MEDS: FERROUS SULFATE (325 MG) 325 MG/TAB TABLET PO SCH ×2 (10:15→17:40)
[2017-08-14] MEDS: MUPIROCIN OINT 2% 22 GM TUBE SCH ×2 (10:15→20:40)
--- NOTE | 2017-08-14 10:15 | NUR ---
RN NOTES: PATIENT REFUSED LOTRIMIN LOTION, BACTROBAN, AND FERROUS SULFATE PO. DISCUSSED BENEFITS AT LENGTH AND PATIENT EDUCATED ON THAT. OFFERED MULTIPLE TIMES. PATIENT KEPT REFUSING STATING "I DONT WANT THEM" NO SIGNS OF AGITATION NOTED. NO FACIAL GRIMACING. PATIENT ATE BREAKFAST AND REFUSED BOOST. BED IN LOWEST LOCKED POSITION. CALL LIGHT WITHIN REACH. WILL CONTINUE TO MONITOR
--- NOTE | 2017-08-14 11:31 | NUR ---
WOUND CARE CONSULT: PT SCREAMING AND REFUSING SKIN ASSESSMENT. DISCUSSED SKIN PROTECTION WITH NURSING STAFF. WILL SEE PT PT CONDITION PERMITS. CURRENT MICHAEL SCORE IS 14. MD IN AGREEMENT WITH PLAN OF CARE.
[2017-08-14] MEDS: IV NS 0.9% 1,000 ML IV PRN (14:12)
[2017-08-14 16:00] VITALS: BP 139/92
--- NOTE | 2017-08-14 19:20 | NUR ---
RN NOTES PATIENT RESTING IN BED. NONLABORED BREATHING NOTED ON ROOM AIR. PATIENT AOX4. DENIES PAIN. IV SITE ON LEFT FOREARM PATENT AND INTACT WITH ORDERED FLUIDS RUNNING. NO AGITATION NOTED. BED IN LOWEST LOCKED POSITION. CALL LIGHT WITHIN REACH. DURING SHIFT, PATIENT REFUSED MORNING FERROUS SULFATE. MARIA L BORDEN NOTIFIED. PATIENT KEPT CLEAN AND DRY DURING SHIFT. NO SIGNS OF DISTRESS NOTED. ENDORSED TO NEXT SHIFT Addendum: 08/15/17 at 1946 by ARI GROVE RN PATIENT AOX2-3
[2017-08-14 20:00] VITALS: BP 124/77
--- NOTE | 2017-08-14 20:00 | NUR ---
MS GRINDER SET UP OPERATOR JIG INITIAL NOTES SEEN PT IN BED AWAKE ALERT WATCHING TV WITH IVF OF NS AT 75ML/HR INFUSING AT THIS TIME ON HER LEFT FOREARM PATENT AND INTACT. NO SIGNS OF ANY ACUTE DISTRESS NOTED BUT COMPLAINING OF GENERALIZED PAIN OFFERED NORCO TABLET . REFUSED TO HAVE WOUND CARE TREATMENT. SHE INSISTED "I ONLY NEEDS PAIN MEDICATION ". SAFETY PRECAUTION APPLIED PLACE CALL LIGHT AT REACH. ISOLATION PRECAUTION IMPLEMENTED AND OBSERVED. I ALSO TOLD TO THE PT I WILL BE BACK FOR HER PAIN MEDICATION.
--- NOTE | 2017-08-14 20:40 | NUR ---
GLUE DRIER OPERATOR PAIN MGT. C/O GENERALIZED PAIN. NORCO TABLET GIVEN ORDERED AND PT REQUESTED. EDUCATE PT FOR POSSIBLE SIDE EFFECT AND PT UNDERSTOOD WELL AND SAYING "THANK YOU". WILL CONTINUE MONITORING.
[2017-08-14] MEDS: CEFTRIAXONE 1 G in IV NS 0.9% 50 ML IV SCH (20:44)
[2017-08-15] MEDS: HYDROCODONE/APAP 5/325MG 1 EACH TABLET PO PRN ×3 (05:30→20:11)
[2017-08-15] MEDS: IV NS 0.9% 1,000 ML IV PRN ×2 (06:30→20:16)
--- NOTE | 2017-08-15 07:00 | NUR ---
MS VENDING MECHANIC CLOSING NOTES PT SLEEPING AT THIS TIME NO SIGNS OF ANY ACUTE DISTRESS NOTED. STABLE DORIS THE NIGHT AND SLEPT WELL AFTER NORCO TABLET GIVEN LAST NIGHT. ALL DUE MEDS GIVEN AND ALL NEEDS MET SPONGE BATH RENDERED WELL SKIN WOUND TREATMENT. IVF NS STILL INFUSING AND KEPT HER WARM AND COMFORTABLE AT ALL TIMES. ENDORSE TO AM NURSE . PLACE CALL LIGHT AT REACH.
[2017-08-15 07:13] LABS: BASOPHILS % (AUTO) 0.5 % (0.0-2.0); EOSINOPHILS # (AUTO) 0.3 /CMM (0.0-0.7); EOSINOPHILS % (AUTO) 5.9 % (0.0-6.0); HEMATOCRIT 30 % (33-45); HEMOGLOBIN 9.9 g/dL (11.5-14.8); LYMPHOCYTES % (AUTO) 17.1 % (20.0-44.0); MEAN CORPUSCULAR HEMOGLOBIN 24 PG (26.0-33.0); MEAN CORPUSCULAR HGB CONC 33 g/dl (31.0-36.0); MEAN CORPUSCULAR VOLUME 75 fL (82-100); MONOCYTES # (AUTO) 0.5 /CMM (0.1-1.30); NEUTROPHILS % (AUTO) 68.5 % (43.0-81.0); PLATELET COUNT (AUTO) 473 /CMM (150-450); RDW COEFFICIENT OF VARIATION 16.7 (11.5-15.0); RED BLOOD CELL COUNT(AUTO) 4.06 MIL/uL (4.0-5.2); WHITE BLOOD COUNT (AUTO) 5.8 K/uL (4.3-11.0)
--- NOTE | 2017-08-15 07:30 | NUR ---
RN NOTES PATIENT RESTING IN BED. NONLABORED BREATHING NOTED ON ROOM AIR. PATIENT AOX3. DENIES PAIN. IV SITE ON LEFT FOREARM PATENT AND INTACT WITH ORDERED FLUIDS RUNNING. NO AGITATION NOTED. BED IN LOWEST LOCKED POSITION. CALL LIGHT WITHIN REACH. SAFETY PRECAUTIONS IMPLEMENTED Addendum: 08/15/17 at 1945 by ARI GROVE RN PATIENT AOX2-3
[2017-08-15 07:46] LABS: CALCIUM, SERUM 8.8 mg/dL (8.5-10.1); CREATININE 0.6 mg/dL (0.6-1.3); MAGNESIUM 1.6 mg/dL (1.8-2.4); POTASSIUM 3.9 mmol/L (3.5-5.1)
[2017-08-15 08:00] VITALS: BP 131/75
[2017-08-15] MEDS: CLOTRIMAZOLE 1% 15 GM TUBE TP SCH ×2 (09:00→19:00)
[2017-08-15] MEDS: BOOST PLUS FOOD-CHOCLATE 237 ML BOX PO SCH ×2 (09:09→17:24)
[2017-08-15] MEDS: MUPIROCIN OINT 2% 22 GM TUBE SCH ×2 (09:11→21:00)
[2017-08-15] MEDS: FERROUS SULFATE (325 MG) 325 MG/TAB TABLET PO SCH ×2 (09:11→17:24)
--- NOTE | 2017-08-15 09:47 | NUR ---
RN NOTES: PATIENT REFUSING LOTRIMIN AND REFUSING TO GET CHANGED. BENEFITS AND RISKS EXPLAINED AT LENGTH. PATIENT STATES "I DONT WANT TO"
[2017-08-15] MEDS: Magnesium 1GM/D5W 100ML PREMIX 100 ML IV SCH ×2 (12:59→14:07)
[2017-08-15 16:00] VITALS: BP 123/66
--- NOTE | 2017-08-15 18:00 | NUR ---
RN NOTES: NO BOWEL MOVEMENT DURING SHIFT. PATIENT OFFERED MILK OF MAGNESIA. PATIENT REFUSING, STATING " NO I DON WANT THAT. I DONT FEEL CONSTIPATED.
--- NOTE | 2017-08-15 18:52 | NUR ---
RN NOTES PATIENT RESTING IN BED. NONLABORED BREATHING NOTED ON ROOM AIR. PATIENT AOX3. DENIES PAIN. IV SITE ON LEFT FOREARM PATENT AND INTACT WITH ORDERED FLUIDS RUNNING. NO AGITATION NOTED. BED IN LOWEST LOCKED POSITION. CALL LIGHT WITHIN REACH. SAFETY PRECAUTIONS IMPLEMENTED. IV FLUIDS RUNNING PER ORDERS. NO AGITATION NOTED DURING SHIFT. PATIENT KEPT CLEAN AND DRY. TURNED AND REPOSITIONED EVERY 2 HOURS. PATIENT REFUSING TO AMBULATE. "STATING I JUST WANT TO REST" WILL ENDORSE TO NEXT SHIFT Addendum: 08/15/17 at 1945 by ARI GROVE RN PATIENT AOX2-3
--- NOTE | 2017-08-15 19:06 | NUR ---
RN NOTES: PATIENT REFUSING LOTRIMIN. NEW BROUGHT FROM PHARMACY. PATIENT STATES "NO I DONT WANT IT. I DONT FEEL ITCHY." BENEFITS AND RISKS EXPLAINED TO PATIENT AT LENGTH. PATIENT CLEAN NOW
--- NOTE | 2017-08-15 19:30 | NUR ---
MS RN OPENING NOTES RECEIVED PT LAYING IN BED WITH HOB ELEVATED. PT IS AWAKE, ALERT AND RESPONSIVE. RESPIRATIONS ARE EVEN AND UNLABORED, NOT IN ANY ACUTE DISTRESS NOTED. IV TO LFA INTACT, NO INFILTRATION NOTED. DRESSING KEPT CLEAN AND DRY. NO C/O SOB, CHEST PAIN, N/V. OFFERED TO LOWER THE BED FOR SAFETY, PT REFUSED. BED IS LOCKED AT THIS TIME AND REMINDED PT TO USE CALL LIGHT WHEN ASSISTANCE IS NEEDED. CALL LIGHT IS LEFT WITHIN REACH. WILL CONTINUE TO MONITOR PT THROUGHOUT SHIFT.
[2017-08-15 20:00] VITALS: BP_SYST 130; BP_SYST 136; BP_SYST 151; BP_DIAS 131; BP_DIAS 76
[2017-08-15] MEDS: CEFTRIAXONE 1 G in IV NS 0.9% 50 ML IV SCH (20:12)
--- NOTE | 2017-08-15 21:32 | NUR ---
RN NOTES PT REFUSED BACTROBAN. EXPLAINED THE RISKS AND BENEFITS X3 AND THE IMPORTANCE OF RECEIVING BACTROBAN. PT STILL NOTED WITH NONCOMPLIANCE AND STATED "I DO NOT NEED THAT. I JUST NEED PAIN MEDICATION." PT STATED PL 03/26 TO HER "ORGANS HURTING." ADMINISTERED PAIN MEDICATION, NOTED TO BE EFFECTIVE. WILL CONTINUE TO MONITOR THROUGHOUT SHIFT.
[2017-08-16] MEDS: HYDROCODONE/APAP 5/325MG 1 EACH TABLET PO PRN ×3 (02:18→14:39)
--- NOTE | 2017-08-16 06:10 | NUR ---
MS RN CLOSING NOTES ALL NEEDS MET AND RENDERED. ALERT AND RESPONSIVE. REMAINS AFEBRILE. RESPIRATIONS ARE EVEN AND UNLABORED, NOT IN ANY ACUTE DISTRESS NOTED. DENIES ANY SOB, CHEST PAIN, N/V. IV TO LFA INTACT, DRESSING KEPT CLEAN AND DRY. REPOSITIONED Q2H TO PREVENT FURTHER SKIN INJURIES AND FOR COMFORT. SAFETY MEASURES ARE IN PLACE. BED IS IN ITS LOW AND LOCKED POSITION. REMINDED PT TO USE CALL LIGHT WHEN ASSISTANCE IS NEEDED, CALL LIGHT SI LEFT WITHIN REACH.
--- NOTE | 2017-08-16 07:05 | NUR ---
RN OPENING NOTES PT WITH CONTACT PRECS R/T MRSA. PT RECEIVED SLEEPING, EASILY AWOKEN AND REQUESTING FURTHER REST. PT WITH EVEN UNLABORED RESPIRATIONS AND NO OBVIOUS S/S OF DISTRESS OR DISCOMFORT. PT WITH IVC AT L FA INTACT AND OPERATIONAL. WILL BRIEF PT ON POC AT BREAKFAST. BED IN LOWEST LOCKED POSITION WITH HANDRAILSX3 AND CALL GODINEZ WITHIN REACH. PT WITHOUT CONCERN OR COMPLAINT AT THIS TIME.
[2017-08-16 08:00] VITALS: BP 116/59
[2017-08-16] MEDS: BOOST PLUS FOOD-CHOCLATE 237 ML BOX PO SCH ×2 (09:02→17:32)
[2017-08-16] MEDS: FERROUS SULFATE (325 MG) 325 MG/TAB TABLET PO SCH ×2 (09:02→17:00)
[2017-08-16] MEDS: MUPIROCIN OINT 2% 22 GM TUBE SCH (09:07)
[2017-08-16] MEDS: CLOTRIMAZOLE 1% 15 GM TUBE TP SCH ×2 (09:07→17:00)
[2017-08-16 10:00] VITALS: BP 116/59
--- NOTE | 2017-08-16 11:13 | NUR ---
RN NOTES. PT NOW AGREED TO SKIN ASSESSMENT AND CARE. SKIN CONDITION IMPROVING PER WOUND CARE NURSE. GROIN AND UPPER THIGHS CLEANED WITH SOAP AND WATER, RX APPLIED AND COVERED WITH Z GUARD.
--- NOTE | 2017-08-16 11:39 | NUR ---
WOUND CARE CONSULT: PT SEEN FOR SKIN ASSESSMENT AND NOTED TO HAVE RESOLVING REDNESS/RASH TO BUTTOCKS WITH BROWNISH PEELING SKIN TO THIGHS(PRESENT ON ADMISSION). PT IS INCONTINENT. SMALL SCAB NOTED TO LEFT LOWER LEG. RECOMMENDATIONS MADE FOR SKIN PROTECTION AND DISCUSSED WITH NURSING STAFF. WILL SEE PRKamini. IN AGREEMENT WITH PLAN OF CARE.
[2017-08-16] MEDS ORDERED: QUET25TA PO (14:03)
[2017-08-16] MEDS ORDERED: CEPH-570 PO (14:03)
[2017-08-16] MEDS ORDERED: HYDR-3972 PO (14:03)
[2017-08-16] MEDS ORDERED: FERR325T28 PO (14:03)
[2017-08-16 16:00] VITALS: BP 130/61
--- NOTE | 2017-08-16 18:30 | NUR ---
RN D/C NOTES. PT PREPARED FOR D/C PER MD. PT ENDORSED TO DIVYA AT [facility]. PT TOLERATING ROOM AIR WITHOUT RESP DISTRESS AND REPORTING ADEQUATE PAIN MANAGEMENT. PT IVC REMOVED AND NAD AT SITE. PT REFUSED SKIN PHOTOGRAPHY. SKIN VISUALIZED TODAY WITH WOUND CARE NURSE AND SKIN REMAINED INTACT WITH SOME PEELING DRIED SKIN AND REDNESS, BY COMPARISON TO PREVIOUS PHOTOS, SIGNIFICANTLY BETTER. PT WITH ALL BELONGINGS AND DOCUMENT SIGNED. PT REFUSED SIGNING OF SO D/C PACKET. ALL ALLOWED NURSE DUTIES ATTENDED TO AND PT LEFT WITHOUT CONCERN OR COMPLAINT. PT TRANSPORTED WITH EMT CREW.
== END 2017-08-16 18:40 | DRG 720 ==
LOC: ER 20:02 → MEDSG2 22:15 → MED 22:31
PROVIDERS: ATTEND Nurse Practitioner Acute Care
DX: A41.9 Sepsis, unspecified organism (principal); N17.0 Acute kidney failure with tubular necrosis; N39.0 Urinary tract infection, site not specified; E83.42 Hypomagnesemia; B96.20 Unspecified Escherichia coli [E. coli] as the cause of diseases classified elsewhere; E11.9 Type 2 diabetes mellitus without complications; D47.3 Essential (hemorrhagic) thrombocythemia; D50.9 Iron deficiency anemia, unspecified; F29 Unspecified psychosis not due to a substance or known physiological condition; S30.810A Abrasion of lower back and pelvis, initial encounter; S30.811A Abrasion of abdominal wall, initial encounter; Z59.0 Homelessness; S30.814A Abrasion of vagina and vulva, initial encounter; Z99.3 Dependence on wheelchair; Z90.49 Acquired absence of other specified parts of digestive tract; Z88.6 Allergy status to analgesic agent; Z91.018 Allergy to other foods; Z79.899 Other long term (current) drug therapy; X58.XXXA Exposure to other specified factors, initial encounter; Y92.9 Unspecified place or not applicable; Z98.890 Other specified postprocedural states; Z22.322 Carrier or suspected carrier of Methicillin resistant Staphylococcus aureus; F17.200 Nicotine dependence, unspecified, uncomplicated; F39 Unspecified mood [affective] disorder; F15.159 Other stimulant abuse with stimulant-induced psychotic disorder, unspecified
CPT/HCPCS: 36415; 80048-TC; 80061-TC; 80076-TC; 81000-TC; 82140-TC; 82728-TC; 83540-TC; 83735-TC; 83921; 84100-TC; 84443-TC; 85025-TC; 85045-TC; 85730-TC; 86704; 86705; 86706; 86803; 87040-TC; 87081-TC; 87086-TC; 87186-TC; 87340; A4216; A4606; A6402; J0696; J1200; J1630; J3475; J7030; J7060; Z7610

== ENCOUNTER 2020-04-12 12:30 | Inpatient (IN) | payer MEDICAID ==
[~2020-04-12] VITALS: Ht 165.1 cm; Wt 61.7 kg
[~2020-04-12 12:30] MED LIST changes: -ATEN25TA PO; +CEPH-570 PO; +FERR325T28 PO; -GABA100C PO; +HYDR-3972 PO; -MIRT15TA PO; +QUET25TA PO
--- NOTE | 2020-04-12 12:40 | NUR ---
[id number], from [facility], c/o BLE pain x 4 months, 8/10 pain scale. Patient a/ox3, breathing even and unlabored, patient's clothes soiled with urine and feces, gave a full sponge bath and changed into a gown, patient's noted with multiple skin sores on her periarea, sacral and bilateral lower extremities. Skin care provided.
--- NOTE | 2020-04-12 13:09 | NUR ---
MOVE SHEET SUBMITTED AND CALLED FOR MS BED.
[2020-04-12] MEDS ORDERED: ACET-73 PO (13:12)
[2020-04-12] MEDS ORDERED: VANCOMYCIN 1 GM in IV D5W 250 ML IV ONE (13:30)
[2020-04-12] MEDS ORDERED: PIPERACILLIN /TAZOBACTAM 3.375 G in IV D5W 50 ML IV ONE (13:30)
[2020-04-12 13:34] LABS: BASOPHILS # (AUTO) 0.1 /CMM (0.0-0.2); EOSINOPHILS % (AUTO) 2.4 % (0.0-6.0); HEMATOCRIT 36 % (33-45); HEMOGLOBIN 11.1 g/dL (11.5-14.8); LYMPHOCYTES # (AUTO) 1.1 /CMM (0.8-4.8); LYMPHOCYTES % (AUTO) 13.3 % (20.0-44.0); MEAN CORPUSCULAR HGB CONC 31 g/dl (31.0-36.0); MEAN CORPUSCULAR VOLUME 80 fL (82-100); MONOCYTES # (AUTO) 0.7 /CMM (0.1-1.30); MONOCYTES % (AUTO) 8.6 % (2.0-12.0); NEUTROPHILS # (AUTO) 6.5 /CMM (1.8-8.9); NEUTROPHILS % (AUTO) 74.7 % (43.0-81.0); PLATELET COUNT (AUTO) 530 /CMM (150-450); RED BLOOD CELL COUNT(AUTO) 4.55 MIL/uL (4.0-5.2); WHITE BLOOD COUNT (AUTO) 8.7 K/uL (4.3-11.0)
--- NOTE | 2020-04-12 13:48 | NUR ---
CALLED [facility] FOR ADMISSION.
--- NOTE | 2020-04-12 14:09 | NUR ---
DR. ALMEIDA AT BEDSIDE FOR EVAL.
--- NOTE | 2020-04-12 14:33 | NUR ---
BED ASSIGNED= 206-
--- NOTE | 2020-04-12 14:48 | NUR ---
REPORT GIVEN TO SUNDEEP NROTON FOR RACHANA
--- NOTE | 2020-04-12 14:54 | NUR ---
PATIENT TRANSFERRED TO TELE FLOOR VIA ACLS PROTOCOL. PATIENT IN STABLE CONDITION.
--- NOTE | 2020-04-12 15:00 | NUR ---
MS/RN ADMITTING NOTE Patient transferred safely to room 206-1 via bed. VS taken, VSS, afebrile, no SOB noted, A&O x 3. Patient complains of bilateral leg sharp pain of 10/10, refuses pain medication at this time, states she just wants to rest it off for now. Educated risks and benefits. Breathing even and non-labored on RA, no SOB noted. No cardiac distress noted. IV access noted on L AC #18 gauge, patent and intact, and flushing well. Skin assessment done, photos of wound impairments taken and placed on chart. Sensation from all peripheral extremities intact. Belongings noted and listed on chart. Bed locked to its lowest position, side rails x 2 up, call light in hand. Will continue to monitor closely. Notified MD for orders.
[2020-04-12 15:13] LABS: CALCIUM, SERUM 8.9 mg/dL (8.5-10.1); CARBON DIOXIDE 20 mmol/L (21-32); CHLORIDE 102 mmol/L (98-107); CREATININE 0.9 mg/dL (0.6-1.3); GLUCOSE 177 mg/dL (74-106); POTASSIUM 3.9 mmol/L (3.5-5.1); SODIUM SERUM 135 mmol/L (136-145); UREA NITROGEN, BLOOD 14 mg/dL (7-18)
[2020-04-12 15:18] LABS: ALANINE AMINOTRANSFERASE 6 U/L (12-78); ALBUMIN 2.6 g/dL (3.4-5.0); ALKALINE PHOSPHATASE 113 U/L (46-116); ASPARTATE AMINOTRANSFERASE 14 U/L (15-37); BILIRUBIN,DIRECT 0.1 mg/dL (0.0-0.2); BILIRUBIN,TOTAL 0.4 mg/dL (0.2-1.0); TOTAL PROTEIN, SERUM 8.2 g/dL (6.4-8.2)
[2020-04-12] MEDS ORDERED: MAGNESIUM HYDROXIDE 30 ML UDC PO PRN (15:30)
[2020-04-12] MEDS ORDERED: ACETAMINOPHEN 325 MG TABLET PO PRN (15:30)
[2020-04-12] MEDS ORDERED: Z GUARD REMEDY 2 OZ OINT TP PRN (15:30)
[2020-04-12] MEDS ORDERED: ONDANSETRON HCL/PF 4 MG/2 ML VIAL IVP PRN (15:30)
[2020-04-12] MEDS ORDERED: ZOLPIDEM TARTRATE 5 MG TABLET PO PRN (15:30)
[2020-04-12] MEDS ORDERED: MAG HYDROX/AL HYDROX/SIMETH 30 ML UDC PO PRN (15:30)
--- NOTE | 2020-04-12 16:00 | NUR ---
MS/RN NOTE Patient refusing flu vaccination, states she fears adverse effects. Educated patient about risks and benefits, patient insists on refusing vaccine. Also, patient is not a candidate for pneumococcal vaccine since < 65 y/o.
[2020-04-12 16:10] LABS: APPEARANCE,URINE SL CLOUDY (CLEAR); BILIRUBIN,URINE MODERATE (NEGATIVE); BLOOD, URINE MODERATE Ery/uL (NEGATIVE); COLOR,URINE YELLOW (YELLOW); KETONES,URINE NEGATIVE (NEGATIVE); LEUKOCYTE ESTERASE ,URINE MODERATE (NEGATIVE); NITRITE, URINE NEGATIVE (NEGATIVE); PROTEIN,URINE 100 mg/dl (NEGATIVE); UGLUCOSE NEGATIVE (NEGATIVE); UROBILINOGEN,URINE 0.2 EU/dL (0.2)
[2020-04-12 16:14] LABS: BACTERIA,URINE 2+ /HPF (None Seen); SQUAMOUS EPITHELIAL CELL,UR Few /HPF (None Seen)
[2020-04-12 16:15] LABS: URINE AMORPHOUS URATE Few /HPF (None Seen)
[2020-04-12] MEDS: ENOXAPARIN SODIUM 40 MG/0.4 ML DISP.SYRIN SQ SCH (16:47)
[2020-04-12] MEDS: IV NS 0.9% 1,000 ML IV PRN (16:51)
[2020-04-12] MEDS: HYDROCODONE/APAP 5/325MG TABLET PO PRN (17:50)
[2020-04-12] MEDS ORDERED: PIPERACILLIN /TAZOBACTAM 4.5 G in IV D5W 50 ML IV SCH (18:00)
[2020-04-12] MEDS: ZOSYN IVPB 3.375 G in IV D5W 50ml IV SCH ×2 (18:19→23:46)
--- NOTE | 2020-04-12 19:45 | NUR ---
MS/RN OPENING NOTES RECEIVED PATIENT IN BED RESTING. PATIENT IS ALERT AND ORIENTED X 3. NO SIGNS OF RESPIRATORY DISTRESS OR SOB NOTED. BREATHING IS EVEN AND UNLABORED. PATIENT HAS RIGHT HAND #20G RUNNING 75ML/HR. PATIENT PLACED IN COMFORTABLE POSITION. SAFETY MEASURES ARE IN PLACE, BED IS LOCKED AND PLACED IN THE LOW POSITION, SIDE RAILS UP X 2. CALL LIGHT IS IN EASY REACH OF PATIENT. WILL CONTINUE TO MONITOR THROUGH OUT SHIFT.
--- NOTE | 2020-04-12 19:55 | NUR ---
MS/RN CLOSING NOTE Patient resting in bed, A&O x 3. No complaints of pain/discomfort at this time. Breathing even and non-labored on RA, no SOB noted. No cardiac distress noted. IV access noted on L AC #18 gauge, patent and intact, and running NS @ 125 ml/hr. Cleansed bilateral leg wounds with NS and covered with abdominal pads. Sensation from all peripheral extremities intact. Fall precautions maintained. Will endorse to termite treater nurse.
[2020-04-12 20:00] VITALS: BP 105/61
--- NOTE | 2020-04-12 20:00 | NUR ---
MS/RN NOTES PATIENT REFUSED COVID SWAB ANTIGEN. RISK AND BENEFITS WERE EXPLAINED TO PATIENT. PATIENT STATED SWAB WAS DONE ALREADY AND DID NOT WANT TO BE SWAB AGAIN. PATIENT IN NO SIGNS OF DISTRESS. WILL TRY AT A LATER TIME. WILL CONTINUE TO MONITOR.
--- NOTE | 2020-04-12 23:00 | NUR ---
MS/RN NOTES SECOND ATTEMPT MADE FOR SWAB, PATIENT REFUSED COVID SWAB ANTIGEN. RISK AND BENEFITS WERE EXPLAINED TO PATIENT. PATIENT STATED, DON'T WANT TO BE SWAB AGAIN. PATIENT IN NO SIGNS OF DISTRESS. WILL CONTINUE TO MONITOR.
[2020-04-13] MEDS: VANCOMYCIN 0.75 GM in IV D5W 250 ML IV SCH ×2 (01:34→14:40)
[2020-04-13] MEDS: ZOSYN IVPB 3.375 G in IV D5W 50ml IV SCH ×4 (05:19→23:24)
[2020-04-13] MEDS: IV NS 0.9% 1,000 ML IV PRN ×2 (06:05→23:03)
[2020-04-13 06:22] LABS: BASOPHILS % (AUTO) 0.2 % (0.0-2.0); EOSINOPHILS % (AUTO) 2.6 % (0.0-6.0); HEMATOCRIT 29 % (33-45); HEMOGLOBIN 9.3 g/dL (11.5-14.8); LYMPHOCYTES # (AUTO) 0.3 /CMM (0.8-4.8); LYMPHOCYTES % (AUTO) 4.9 % (20.0-44.0); MEAN CORPUSCULAR HGB CONC 32 g/dl (31.0-36.0); MEAN CORPUSCULAR VOLUME 80 fL (82-100); MONOCYTES # (AUTO) 0.2 /CMM (0.1-1.30); MONOCYTES % (AUTO) 2.5 % (2.0-12.0); NEUTROPHILS # (AUTO) 6.3 /CMM (1.8-8.9); NEUTROPHILS % (AUTO) 89.8 % (43.0-81.0); PLATELET COUNT (AUTO) 410 /CMM (150-450); RED BLOOD CELL COUNT(AUTO) 3.68 MIL/uL (4.0-5.2)
--- NOTE | 2020-04-13 06:40 | NUR ---
MS/RN CLOSING NOTES PATIENT IN BED RESTING. PATIENT IS ALERT AND ORIENTED X 3. NO SIGNS OF RESPIRATORY DISTRESS OR SOB NOTED. BREATHING IS EVEN AND UNLABORED. PATIENT HAS RIGHT HAND #20G RUNNING 75ML/HR. ALL PATIENT CARE DONE DURING SHIFT. ALL PATIENTS NEEDS HAVE BEEN MET DURING SHIFT. SAFETY MEASURES ARE IN PLACE, BED IS LOCKED AND PLACED IN THE LOW POSITION, SIDE RAILS UP X 2. CALL LIGHT IS IN EASY REACH OF PATIENT. WILL ENDORSE CARE TO DAY SHIFT NURSE.
[2020-04-13 06:55] LABS: THYROID STIMULATING HORMONE 1.56 uIU/mL (0.358-3.74)
--- NOTE | 2020-04-13 07:40 | NUR ---
MS/RN OPENING NOTES RECEIVED PATIENT IS ON BED AWAKE, ALERT AND ORIENTED X3. PATIENT IN NO APPARENT RESPIRATORY DISTRESS NOTED. DENIES PAIN AT THIS TIME. WILL CONTINUE TO MONITOR.
--- NOTE | 2020-04-13 09:19 | NUR ---
WOUND CARE CONSULT: REVIEWED CHART, NURSING DOCUMENTATION AND PHOTOS WHICH INDICATE REDNESS AND RASH TO PERINEUM AND BUTTOCKS WELL LARGE ULCERATIONS TO ENTIRE LOWER LEGS, PRESENT ON ADMISSION. RECOMMEND DPM CONSULT. DR CARDOZA NOTIFIED OF CONSULT REQUEST. RECOMMENDATIONS MADE FOR SKIN PROTECTION. DISCUSSED WITH NURSING STAFF. MD IN AGREEMENT WITH PLAN OF CARE.
[2020-04-13 11:24] LABS: CALCIUM, SERUM 7.6 mg/dL (8.5-10.1); CREATININE 0.8 mg/dL (0.6-1.3); MAGNESIUM 1.7 mg/dL (1.8-2.4); PHOSPHORUS 2.8 mg/dL (2.5-4.9); POTASSIUM 3.3 mmol/L (3.5-5.1)
--- NOTE | 2020-04-13 11:42 | NUR ---
MS/RN NOTES PATIENT IS ALERT AND ORIENTED X 3-4. PATIENT IN NO APPARENT RESPIRATORY DISTRESS NOTED. DENIES PAIN AT THIS TIME. TRANSFER TO EMM[facility]LE AT 1120 FOR RACHANA, REPORT WAS GIVEN TO SHANNON.
--- NOTE | 2020-04-13 11:45 | NUR ---
Receive patient via bed , bedside report given by Sakshi NORTON. Will continue RACHANA
[2020-04-13 12:00] VITALS: BP 102/54
--- NOTE | 2020-04-13 15:29 | NUR ---
SS consult requested by Dr. Erik Dykes for homelessness. SW attempted to complete SS assessment. Patient was lying in her bed sleeping. Pt. was arousable by verbal cues. However, pt. was very drowsy and stated, "Can you come later I'm too tired". Pt. spoke with slurred speech and eyes closed. SW asked pt. if she can ask a few questions to provide her with appropriate resources. Pt. did not respond and was asleep. SW will follow up and is available as needed.
[2020-04-13] MEDS: CLOTRIMAZOLE 1% 15 GM TUBE TP SCH (16:38)
[2020-04-13] MEDS: ENOXAPARIN SODIUM 40 MG/0.4 ML DISP.SYRIN SQ SCH (17:15)
--- NOTE | 2020-04-13 19:02 | NUR ---
Patient awake alert and oriented x3. Stable on room air, afebrile, VS are stable. All needs attended. Patient refused to change dressing on b/l leg. IV fluid is running as ordered. Will endorse to next shift for RACHANA
--- NOTE | 2020-04-13 19:45 | NUR ---
MS RN NOTES RECEIVED ON BED SLEEPING,AROUSABLE TO VERBAL STIMULI,BREATHING REGULAR,NOT IN ANY FORM OF DISTRESS.PRESENT IVF NS AT 75ML/HR RATE INFUSING WELL ON RIGHT HAND,SITE PATENT.NOTED MULTIPLE DRY ULCERS ON BOTH LEGS,REFUSED TO BE TOUCH.SITTER AT BEDSIDE FOR SAFETY.CALL LIGHT IN REACH,NEEDS ANTICIPATED.
[2020-04-13 20:00] VITALS: BP 111/59
[2020-04-13] MEDS ORDERED: MAGNESIUM OXIDE 400 MG TABLET PO ONE (21:00)
[2020-04-13] MEDS ORDERED: POTASSIUM CHLORIDE 20 MEQ TAB.PRT.SR PO ONE (21:00)
--- NOTE | 2020-04-13 21:11 | NUR ---
MS RN NOTES K LEVEL OF 3.3 AND MAGNESIUM 1.7,HOSPITALIST OSORIO MADE AWARE WITH ORDER TO GIVE K DUR 40MEQ AND MAX OXIDE 800MG PO, ADMINISTERED.
[2020-04-14] MEDS: VANCOMYCIN 0.75 GM in IV D5W 250 ML IV SCH ×2 (01:42→10:40)
[2020-04-14] MEDS: HYDROCODONE/APAP 5/325MG TABLET PO PRN ×3 (02:25→20:14)
--- NOTE | 2020-04-14 02:25 | NUR ---
MS RN NOTES SCREAMING IN PAIN ON BOTH LEGS,MEDICATED WITH NORCO 5/325MG,1 TAB PO ORDERED.
--- NOTE | 2020-04-14 02:45 | NUR ---
MS RN NOTES STILL SCREAMING IN PAIN WITH DRESSING CHANGE ON BOTH LEGS.CHARGE NURSE MADE AWARE,MADE A CALL TO OSORIO,HOSPITALIST TRIGONOMETRY TUTOR,WITH ORDER NOTED AND CARRIED OUT.
--- NOTE | 2020-04-14 02:55 | NUR ---
0255 JUAN RAMON HARDIN WAS NOTIFIED OF PATIENT'S C/O SEVERE PAIN ON BOTH LEGS, MEDICATED WITH NORCO BUT WITH NO HELP. PATIENT IS STILL SCREAMING IN PAIN. JUAN RAMON HARDIN ORDERED TO GIVE MORPHINE 4MG IVP EVERY 6 HOURS NEEDED FOR SEVERE PAIN. ORDER NOTED AND CARRIED OUT.
[2020-04-14] MEDS: MORPHINE SULFATE INJ 4 MG/ML DISP.SYRIN IV PRN ×2 (03:12→23:48)
--- NOTE | 2020-04-14 03:12 | NUR ---
MS RN NOTES MORPHINE SULFATE 4MG IV GIVEN ORDERED FOR SEVERE PAIN.
[2020-04-14 04:00] VITALS: BP 101/59
[2020-04-14] MEDS: ZOSYN IVPB 3.375 G in IV D5W 50ml IV SCH ×4 (05:41→23:58)
--- NOTE | 2020-04-14 06:10 | NUR ---
MS RN NOTES SLEPT WITH INTERVALS,MORPHINE EFFECTIVE FOR PAIN MANAGEMENT.BOTH LEGS ELEVATED PER PATIENT REQUEST.IV SITE REMAINS PATENT.IV ABX ADMINISTERED,NO SIDE EFFECTS NOTED.IN NO ACUTE DISTRESS.NEEDS ATTENDED.
[2020-04-14 06:41] LABS: BASOPHILS % (AUTO) 0.2 % (0.0-2.0); HEMATOCRIT 30 % (33-45); HEMOGLOBIN 9.4 g/dL (11.5-14.8); LYMPHOCYTES # (AUTO) 0.6 /CMM (0.8-4.8); LYMPHOCYTES % (AUTO) 12.9 % (20.0-44.0); MEAN CORPUSCULAR HGB CONC 32 g/dl (31.0-36.0); MEAN CORPUSCULAR VOLUME 78 fL (82-100); MONOCYTES # (AUTO) 0.2 /CMM (0.1-1.30); MONOCYTES % (AUTO) 4.6 % (2.0-12.0); NEUTROPHILS # (AUTO) 3.1 /CMM (1.8-8.9); NEUTROPHILS % (AUTO) 73.3 % (43.0-81.0); PLATELET COUNT (AUTO) 349 /CMM (150-450); RED BLOOD CELL COUNT(AUTO) 3.79 MIL/uL (4.0-5.2); WHITE BLOOD COUNT (AUTO) 4.3 K/uL (4.3-11.0)
[2020-04-14 07:08] LABS: CALCIUM, SERUM 7.3 mg/dL (8.5-10.1); CREATININE 0.6 mg/dL (0.6-1.3); MAGNESIUM 1.9 mg/dL (1.8-2.4); PHOSPHORUS 2.6 mg/dL (2.5-4.9); POTASSIUM 3.7 mmol/L (3.5-5.1)
--- NOTE | 2020-04-14 07:15 | NUR ---
ms rn received on bed, awake,alert,oriented x3,not in any form of distress,respirations even and unlabored,no sob noted,denies pain at this time, remains w/ sitter for safety and comfort.will monitor patient.
--- NOTE | 2020-04-14 08:30 | NUR ---
ms hobbs breakfast served,due meds given,tolerated well.
[2020-04-14] MEDS: CLOTRIMAZOLE 1% 15 GM TUBE TP SCH ×2 (09:00→17:06)
[2020-04-14] MEDS: IV NS 0.9% 1,000 ML IV PRN (15:15)
--- NOTE | 2020-04-14 15:19 | NUR ---
SS consult requested by Dr. Erik Dykes for homelessness. Patient was lying in her bed sleeping. Patient was arousable by verbal cues. Patient confirmed date of and social security number. Patient states that she has been homeless for 4 years. Patient informed this SW that she is feeling better than she has been over the last few day, however patient stated that she could use more assitance. SW asked the patient to elaborate on what she meant by this. Patient responded by stating that she would like to go to a rehab facility to help gain mobility back in her body. Patient stated that she has been in this wheelchair (pointed to her wheelchair at bedside) for 4 years. Patient reports that her body has constantly been aching and that she wants to gain energy and mobility again. Patient also asked this SW if there is a possibility to have her wheelchair replace, per patient it is too small for her causing body aches. SW informed the patient that this SW would follow up with case management regarding this request. Patient also informed this SW that patient would like to be referred to Section 8 housing after she gains more mobility in her body. SW informed this patient that this SW would go online to view Section 8 policies during COVID-19 and waitlist status of Section 8. Patient was agreeable to this plan and asked this SW to leave as she was sleepy. Plan: SW to follow-up with case management regarding rehab request of patient and SW to return at a later time to complete Work Car Operator Assessment.
[2020-04-14] MEDS: ENOXAPARIN SODIUM 40 MG/0.4 ML DISP.SYRIN SQ SCH (17:19)
--- NOTE | 2020-04-14 18:57 | NUR ---
ms rn on bed, no distress noted,all needs attended.
--- NOTE | 2020-04-14 19:20 | NUR ---
RN OPENING NOTE RECEIVED PT RESTING IN BED. A/O X 3. FULL CODE NOTED. MED SURG MONITORING IN PLACE. NO S/S OF RESPIRATORY DISTRESS OR SOB. BREATHING IS EVEN AND UNLABORED. IV SITE RIGHT HAND FLUSHED AND PATENT. FLUIDS RUNNING NS @75ML/HR. PT IS BEDBOUND UNABLE TO AMBULATE. PT HAS DRESSINGS CLEAN DRY INTACT ON BILATERAL LOWER EXTREMITIES. PT C/O PAIN ON LEGS RATED 7-8/10. WILL FOLLOW UP. BED IS LOCKED IN LOWEST POSITION. CALL LIGHT WITHIN REACH. SITTER AT BEDSIDE. WILL CONTINUE TO MONITOR.
--- NOTE | 2020-04-14 19:40 | NUR ---
PT GIVEN NORCO PRN FOR BILATERAL LEG PAIN. -01/24. WILL CONTINUE TO MONITOR.
[2020-04-14 20:00] VITALS: BP 115/54
--- NOTE | 2020-04-14 20:45 | NUR ---
DID NOT ADMINISTER [facility] PENDING RESULTS FROM [facility], [facility] NOTIFIED . CHARGE NURSE MADE AWARE.
--- NOTE | 2020-04-14 22:00 | NUR ---
PT NPO PER DOCTOR ORDER FOR PROCEDURE TOMORROW. CONSENT SIGNED, ANESTHESIA SIGNED, BLOOD TRANSFUSION REFUSED. ALL IN CHART.
--- NOTE | 2020-04-14 22:43 | NUR ---
[facility]ANCO TROUGH RESULTS; 16 ACCORDING TO ORDERS OK TO ADMIN. WILL ADMINISTER AND CONTINUE TO MONITOR.
[2020-04-15] VITALS (10 sets, daily range): BP systolic 107–138; BP diastolic 53–89
--- NOTE | 2020-04-15 00:05 | NUR ---
PT CRYING C/O OF SEVERE PAIN 03/26 BILATERAL LEGS. MORPHINE PRN GIVEN ORDERED. WILL CONTINUE TO MONITOR. Addendum: 04/15/20 at 0037 by AROLDO TOWNSEND RN VSS AT THE TIME WERE HR 122 RESP 29 O2 SAT 96 AND BP 154/78.
--- NOTE | 2020-04-15 00:40 | NUR ---
PT VERBALIZES PAIN AT A TOLERABLE LEVEL, MORPHINE IS EFFECTIVE. BUT IS EXPERIENCING SEVERE ITCHINESS. REQUESTS MEDICATION. NOTIFIED TELEPHONE LINEMAN, DR HARDIN WILL CONTINUE TO MONITOR. Addendum: 04/15/20 at 0107 by AROLDO TOWNSEND RN ORDER PRN FOR ITCHINESS NOTED. PT IS ASLEEP AT THIS TIME. AROUSABLE TO SPEECH AND TOUCH. ASKED ABOUT ITCHING ON THE LEGS, PT VERBALIZED TOLERABLE AT THIS TIME, MEDICATION NOT NEEDED AT THIS TIME AND DESIRES TO SLEEP AT THIS TIME. WILL CONTINUE TO MONITOR.
[2020-04-15] MEDS ORDERED: hydrOXYzine HCL SYRUP 10 MG/5 ML UDC PO PRN (01:00)
--- NOTE | 2020-04-15 03:45 | NUR ---
PT REFUSED WOUND TREATMENT/CHANGE OF DRESSINGS MULTIPLE TIMES. VERBALIZED PAIN. MEDICATION GIVEN PRN ORDERED
[2020-04-15] MEDS: HYDROCODONE/APAP 5/325MG TABLET PO PRN ×2 (03:53→14:11)
[2020-04-15] MEDS: ZOSYN IVPB 3.375 G in IV D5W 50ml IV SCH ×4 (05:39→23:13)
[2020-04-15] MEDS: IV NS 0.9% 1,000 ML IV PRN (05:40)
[2020-04-15] MEDS: MORPHINE SULFATE INJ 4 MG/ML DISP.SYRIN IV PRN (05:50)
--- NOTE | 2020-04-15 06:40 | NUR ---
RN CLOSING NOTES PT IS STILL RESTING IN BED. NO S/S OF RESP DISTRESS OR SOB. BREATHING EVEN AND UNLABORED AT THIS TIME. HOB ELEVATED. NO SIGNIFICANT CHANGES THROUGHOUT MY SHIFT. NEEDS ATTENDED. PAIN MANAGED. BED IS LOCKED IN LOWEST POSITION WITH BED ALARM ON. CALL LIGHT WITHIN REACH. WILL ENDORSE TO AM NURSE FOR RACHANA.
[2020-04-15] MEDS ORDERED: ANESTHESIA TRAY IN PYXIS 1 EA TRAY MC ONE (07:03)
[2020-04-15] MEDS ORDERED: BUPIVACAINE MPF 0.5% W/EPI INJ 30 ML VIAL ONE (07:04)
[2020-04-15] MEDS ORDERED: LIDOCAINE 1% INJ 50 ML MDV IJ ONE (07:05)
[2020-04-15 07:16] LABS: BASOPHILS % (AUTO) 0.9 % (0.0-2.0); EOSINOPHILS % (AUTO) 12.3 % (0.0-6.0); HEMATOCRIT 30 % (33-45); HEMOGLOBIN 9.4 g/dL (11.5-14.8); LYMPHOCYTES # (AUTO) 0.7 /CMM (0.8-4.8); LYMPHOCYTES % (AUTO) 17.7 % (20.0-44.0); MEAN CORPUSCULAR HGB CONC 32 g/dl (31.0-36.0); MEAN CORPUSCULAR VOLUME 79 fL (82-100); MONOCYTES # (AUTO) 0.2 /CMM (0.1-1.30); MONOCYTES % (AUTO) 6.2 % (2.0-12.0); NEUTROPHILS # (AUTO) 2.4 /CMM (1.8-8.9); NEUTROPHILS % (AUTO) 62.9 % (43.0-81.0); PLATELET COUNT (AUTO) 357 /CMM (150-450); RED BLOOD CELL COUNT(AUTO) 3.79 MIL/uL (4.0-5.2); WHITE BLOOD COUNT (AUTO) 3.8 K/uL (4.3-11.0)
--- NOTE | 2020-04-15 07:30 | NUR ---
RN OPENING NOTE PATIENT BEING PICKED UP FOR SCHEDULED BOTH LOWER EXTREMITY WOUND DEBRIDEMENT.
--- NOTE | 2020-04-15 07:43 | NUR ---
RN CLOSING NOTES PT TAKEN BY OR TEAM. BELONGINGS STILL IN ROOM.
--- NOTE | 2020-04-15 07:45 | NUR ---
ORDER PUT IN FOR TEST, URINE AND BLOOD SERUM. AM CHARGE NURSE AWARE.
[2020-04-15 07:48] LABS: CALCIUM, SERUM 7.4 mg/dL (8.5-10.1); CREATININE 0.6 mg/dL (0.6-1.3); MAGNESIUM 1.8 mg/dL (1.8-2.4); PHOSPHORUS 3.2 mg/dL (2.5-4.9); POTASSIUM 3.7 mmol/L (3.5-5.1)
[2020-04-15] MEDS ORDERED: BUPIVACAINE 0.5 % PF 150 MG/30 ML VIAL ONE (07:57)
[2020-04-15] MEDS ORDERED: FENTANYL PF 100MCG/2ML AMPUL ONE ×2 (08:07→08:29)
[2020-04-15] MEDS ORDERED: SILVER SULFADIAZINE 50 GM JAR TP ONE (08:30)
[2020-04-15] MEDS: CLOTRIMAZOLE 1% 15 GM TUBE TP SCH ×2 (08:31→17:00)
[2020-04-15] MEDS ORDERED: MORPHINE SULFATE INJ 4 MG/ML DISP.SYRIN ONE (08:45)
--- NOTE | 2020-04-15 09:35 | NUR ---
RN NOTES PATIENT BACK FROM SURGERY, EYES CLOSED, AROUSES TO NAME AND TOUCH, ON ROOM AIR, NOT IN ANY DISTRESS, S/P BLE DEBRIDEMENT BY DR. AMBRIZ, CDI DRESSINGS IN PLACE, BLE OFFLOAD, IVF ONGOING. WILL CHECK VS Q15 MINUTES. POST OP ORDERS CARRIED OUT. WILL CONT TO MONITOR.
--- NOTE | 2020-04-15 12:05 | NUR ---
RN NOTES RECEIVED REPORT FROM MICHELLE NORTON. PT IS AWAKE, A/O X3-4. VERBALLY RESPONSIVE. IV SITE AT R HAND #20 INTACT, PATENT AND FLUSHED. PT IN STABLE CONDITION. WILL CONTINUE TO MONITOR
--- NOTE | 2020-04-15 12:07 | NUR ---
RN NOTES REPORT GIVEN TO KATHERINE NORTON FOR RACHANA.
--- NOTE | 2020-04-15 15:30 | NUR ---
RN NOTES PAGED DR. ALMEIDA REGARDING COMPLAINTS OF PAIN. MORPHINE NOT GIVEN DUE TO ITCHINESS LAST NIGHT WHEN ADMINISTERED. NORCO WAS GIVEN BUT STILL COMPLAINS OF PAIN. AWAITS RESPONSE FROM DR. ALMEIDA. WILL CONTINUE TO MONITOR
[2020-04-15] MEDS: VANCOMYCIN 0.75 GM in IV D5W 250 ML IV SCH (16:32)
--- NOTE | 2020-04-15 16:33 | NUR ---
RN NOTE MEDICATION ADMINISTERED LATE BECAUSE IT WAS NOT IN PATIENT BIN ON TIME. CONTACTED PHARMACY AND RECEIVED THE MEDICATION.
[2020-04-15] MEDS: ENOXAPARIN SODIUM 40 MG/0.4 ML DISP.SYRIN SQ SCH (18:30)
--- NOTE | 2020-04-15 19:41 | NUR ---
RN CLOSING NOTES PT RESTING IN BED. S/P WOUND DEBRIDEMENT OF BOTH LEGS. A/O X 3-4. ON RA SATURATING @ 97%. NO PAIN REPORTED AT THIS TIME. REGULAR DIET. R HAND #20 INTACT AND PATENT. NS RUNNING @ 75MLS/HR, INFUSING WELL. SAFETY MEASURES OBSERVED. CALL LIGHT WITHIN REACH. BED LOCKED AND AT LOWEST POSITION WITH SIDE RAILS UP X2. WILL ENDORSE TO NIGHT NURSE FOR RACHANA
[2020-04-16] MEDS: IV NS 0.9% 1,000 ML IV PRN ×2 (01:06→18:28)
[2020-04-16 04:00] VITALS: BP 121/66
[2020-04-16] MEDS: ZOSYN IVPB 3.375 G in IV D5W 50ml IV SCH ×3 (05:25→18:22)
[2020-04-16 06:31] LABS: BASOPHILS % (AUTO) 0.4 % (0.0-2.0); EOSINOPHILS % (AUTO) 1.2 % (0.0-6.0); HEMATOCRIT 29 % (33-45); HEMOGLOBIN 9.2 g/dL (11.5-14.8); LYMPHOCYTES # (AUTO) 0.8 /CMM (0.8-4.8); LYMPHOCYTES % (AUTO) 16.3 % (20.0-44.0); MEAN CORPUSCULAR HGB CONC 31 g/dl (31.0-36.0); MEAN CORPUSCULAR VOLUME 78 fL (82-100); MONOCYTES # (AUTO) 0.3 /CMM (0.1-1.30); MONOCYTES % (AUTO) 6.7 % (2.0-12.0); NEUTROPHILS # (AUTO) 3.7 /CMM (1.8-8.9); NEUTROPHILS % (AUTO) 75.4 % (43.0-81.0); PLATELET COUNT (AUTO) 460 /CMM (150-450); RED BLOOD CELL COUNT(AUTO) 3.76 MIL/uL (4.0-5.2); WHITE BLOOD COUNT (AUTO) 4.9 K/uL (4.3-11.0)
[2020-04-16 06:36] LABS: CREATININE 0.5 mg/dL (0.6-1.3); MAGNESIUM 1.9 mg/dL (1.8-2.4); PHOSPHORUS 2.8 mg/dL (2.5-4.9); POTASSIUM 3.7 mmol/L (3.5-5.1)
--- NOTE | 2020-04-16 07:20 | NUR ---
RN OPENING NOTES RECEIVED PT IN BED. S/P WOUND DEBRIDEMENT OF BOTH LEGS. A/O X 3-4. ON RA SATURATING @ 99%. NO PAIN REPORTED AT THIS TIME. REGULAR DIET. L WRIST #20 INTACT AND PATENT. NS RUNNING @ 75MLS/HR, INFUSING WELL. SAFETY MEASURES OBSERVED. CALL LIGHT WITHIN REACH. BED LOCKED AND AT LOWEST POSITION WITH SIDE RAILS UP X2. WILL CONTINUE TO MONITOR
[2020-04-16] MEDS: VANCOMYCIN 0.75 GM in IV D5W 250 ML IV SCH (08:32)
[2020-04-16] MEDS: CLOTRIMAZOLE 1% 15 GM TUBE TP SCH ×2 (08:35→17:00)
[2020-04-16] MEDS: SILVER SULFADIAZINE CREAM 25 GM TUBE TP SCH (10:55)
[2020-04-16 12:00] VITALS: BP 106/67
[2020-04-16] MEDS: ENOXAPARIN SODIUM 40 MG/0.4 ML DISP.SYRIN SQ SCH (18:25)
--- NOTE | 2020-04-16 19:30 | NUR ---
RN CLOSING NOTES PT RESTING IN BED. S/P WOUND DEBRIDEMENT OF BOTH LEGS. A/O X 3-4. ON RA SATURATING @ 99%. NO PAIN REPORTED AT THIS TIME. REGULAR DIET. L WRIST #20 INTACT AND PATENT. NS RUNNING @ 75MLS/HR, INFUSING WELL. SAFETY MEASURES OBSERVED. CALL LIGHT WITHIN REACH. BED LOCKED AND AT LOWEST POSITION WITH SIDE RAILS UP X2. WILL ENDORSE TO NIGHT NURSE FOR RACHANA
[2020-04-16 20:00] VITALS: BP 140/71
--- NOTE | 2020-04-16 20:00 | NUR ---
RN NOTE PT RECEIVED IN BED A/A/O X3. ON ROOM AIR SATING 97%, HAS UNLABORED BREATHING. SAFETY MEASURES IN PLACE BED AT LOWEST POSITION, LOCKED, SIDE RAILS UPX2, CALL LIGHT IN REACH.
[2020-04-16] MEDS: MORPHINE SULFATE INJ 4 MG/ML DISP.SYRIN IV PRN (21:06)
[2020-04-17] MEDS: ZOSYN IVPB 3.375 G in IV D5W 50ml IV SCH ×4 (00:06→18:02)
[2020-04-17] MEDS: VANCOMYCIN 0.75 GM in IV D5W 250 ML IV SCH ×2 (02:23→20:13)
[2020-04-17 04:00] VITALS: BP 147/76
[2020-04-17] MEDS: MORPHINE SULFATE INJ 4 MG/ML DISP.SYRIN IV PRN ×2 (04:13→16:31)
--- NOTE | 2020-04-17 07:22 | NUR ---
RN NOTE PT REMAINED STABLE DURING MY SHIFT. REPORT GIVEN TO INCOMING SHIFT FOR RACHANA.
[2020-04-17 07:28] LABS: BASOPHILS % (AUTO) 0.6 % (0.0-2.0); EOSINOPHILS % (AUTO) 5.4 % (0.0-6.0); HEMATOCRIT 32 % (33-45); HEMOGLOBIN 9.9 g/dL (11.5-14.8); LYMPHOCYTES # (AUTO) 0.8 /CMM (0.8-4.8); LYMPHOCYTES % (AUTO) 15.1 % (20.0-44.0); MEAN CORPUSCULAR HGB CONC 31 g/dl (31.0-36.0); MEAN CORPUSCULAR VOLUME 79 fL (82-100); MONOCYTES # (AUTO) 0.5 /CMM (0.1-1.30); MONOCYTES % (AUTO) 8.6 % (2.0-12.0); NEUTROPHILS # (AUTO) 3.9 /CMM (1.8-8.9); NEUTROPHILS % (AUTO) 70.3 % (43.0-81.0); PLATELET COUNT (AUTO) 456 /CMM (150-450); RED BLOOD CELL COUNT(AUTO) 4.09 MIL/uL (4.0-5.2); WHITE BLOOD COUNT (AUTO) 5.6 K/uL (4.3-11.0)
[2020-04-17 08:00] VITALS: BP 138/83
[2020-04-17 08:06] LABS: CALCIUM, SERUM 8.6 mg/dL (8.5-10.1); CREATININE 0.7 mg/dL (0.6-1.3); MAGNESIUM 1.8 mg/dL (1.8-2.4); PHOSPHORUS 3.3 mg/dL (2.5-4.9); POTASSIUM 3.4 mmol/L (3.5-5.1)
[2020-04-17] MEDS: SILVER SULFADIAZINE CREAM 25 GM TUBE TP SCH (08:43)
--- NOTE | 2020-04-17 09:04 | NUR ---
MS RN NOTES PATIENT AWAKE AND ALERT/ORIENTED X1-2. NO SOB OR ANY DISTRESS. O2 SAT 97% IN ROOM AIR. NO S/S OF ANY PAIN OR DISCOMFORT. WITH RFA #18G. INTACT, PATENT, AND FLUSHING WELL. ON IVF @75 ML. NO S/S OF ANY INFILTRATION. BED LOCKED AND IN LOWEST POSITION. SAFETY MEASURES IMPLEMENTED. CALL LIGHT WITHIN REACH. Addendum: 04/17/20 at 0911 by KB PLAZA RN ERROR PATIENT IS A/O X3, IV SITE ON LEFT WRIST #20. PATENT AND INTACT.
[2020-04-17] MEDS ORDERED: POTASSIUM CHLORIDE 20 MEQ TAB.PRT.SR PO SCH (10:00)
[2020-04-17] MEDS: CLOTRIMAZOLE 1% 15 GM TUBE TP SCH ×2 (12:32→18:02)
[2020-04-17] MEDS: IV NS 0.9% 1,000 ML IV PRN (12:39)
[2020-04-17 16:00] VITALS: BP 110/50
[2020-04-17] MEDS: ENOXAPARIN SODIUM 40 MG/0.4 ML DISP.SYRIN SQ SCH (18:00)
--- NOTE | 2020-04-17 19:29 | NUR ---
MS RN NOTED PATIENT IN BED RESTING NO SOB OR ACUTE DISTRESS NOTED. ALL DUE MEDICATIONS ADMINISTERED. ALL NEEDS MET. ENDORSED CARE TO PM SHIFT.
--- NOTE | 2020-04-17 19:55 | NUR ---
RN NOTE PT RECEIVED IN BED A/A/O X3. ON ROOM AIR SATING 95%, HAS UNLABORED BREATHING. SAFETY MEASURES IN PLACE BED AT LOWEST POSITION, LOCKED, SIDE RAILS UPX2, CALL LIGHT IN REACH.
--- NOTE | 2020-04-17 22:30 | NUR ---
RN NOTE IV INFILTRATION NOTED , STOPPED IV FLUID, ELEVATE LEFT ARM AND APPLIED ICE PACK. INSERTED NEW IV 22 G ON RIGHT FOREARM.
[2020-04-18] VITALS: BP 141/72
[2020-04-18] MEDS: ZOSYN IVPB 3.375 G in IV D5W 50ml IV SCH ×3 (00:03→12:00)
--- NOTE | 2020-04-18 03:30 | NUR ---
RN NOTE OFFERED TO TAKE PICTURE FOR WEEKLY ASSESSMENT. PT REFUSED. OFFERED X3 STILL REFUSED.
--- NOTE | 2020-04-18 07:20 | NUR ---
PT AWAKE A/O X4. DENIES PAIN NO SOB OR DISTRESS. TOLERATING DIET WELL W GOOD APPETITE. R WRIST IV 22 FLUSHED AND RUNNING NS ORDERED. PT WILL BE TURNED Q2H AND ELEVATING EXTREMITIES. MONITORING PAIN AND BILATERAL LEG DRESSING DRY AND INTACT. WILL CONTINUE TO IMPLEMENT PLAN OF CARE AND MONITOR PT FOR CHANGES IN STATUS AND REPORT NEEDED. ALL HOSPITAL POLICY SAFETY PRECAUTIONS IMPLEMENTED.
--- NOTE | 2020-04-18 07:26 | NUR ---
RN NOTE PT REMAINED STABLE, NO ACUTE CHANGES REPORT GIVEN TO INCOMING SHIFT.
[2020-04-18 08:00] VITALS: BP 126/73
[2020-04-18] MEDS: IV NS 0.9% 1,000 ML IV PRN (08:40)
[2020-04-18] MEDS: SILVER SULFADIAZINE CREAM 25 GM TUBE TP SCH (08:42)
[2020-04-18] MEDS: CLOTRIMAZOLE 1% 15 GM TUBE TP SCH (08:42)
[2020-04-18 11:10] LABS: CALCIUM, SERUM 8.1 mg/dL (8.5-10.1); CREATININE 0.9 mg/dL (0.6-1.3); POTASSIUM 4.3 mmol/L (3.5-5.1)
[2020-04-18] MEDS: VANCOMYCIN 0.75 GM in IV D5W 250 ML IV SCH (13:11)
[2020-04-18] MEDS: MORPHINE SULFATE INJ 4 MG/ML DISP.SYRIN IV PRN (13:23)
--- NOTE | 2020-04-18 16:34 | NUR ---
PT REFUSING PHOTOS FOR SKIN. PT UNCOOPERATIVE AND DEFENSIVE. REPORTS "IT IS TOO PAINFUL AND I JUST WANT IT TO BE LEFT ALONE". WOUND CARE PERFORMED TODAY ORDERED. EXPLAINED REASON TO PT AND PT REFUSES.
--- NOTE | 2020-04-18 17:00 | NUR ---
PT DISCHARGED TO [facility] VIA AMBULANCE. ALL BELONGINGS AND DC TEACHING WITH PATIENT. PT DENIED CONCERNS OR QUESTIONS. REPORT GIVEN TO GERALDINE.
[2020-04-19] MEDS ORDERED: VANCOMYCIN 500 MG in IV D5W 100 ML IV SCH (08:00)
== END 2020-04-18 16:55 | DRG 720 ==
LOC: ER 12:31 → MEDSG2 14:35 → TELE1 04-13 11:28 → MEDSG1 04-13 11:30
PROVIDERS: ATTEND Nurse Practitioner Acute Care
PROC: 0JBR0ZZ Excision of Left Foot Subcutaneous Tissue and Fascia, Open Approach (ICD-10-PCS; principal; 2020-04-15)
PROC: 0JBN0ZZ Excision of Right Lower Leg Subcutaneous Tissue and Fascia, Open Approach (ICD-10-PCS; 2020-04-15)
PROC: 0JBP0ZZ Excision of Left Lower Leg Subcutaneous Tissue and Fascia, Open Approach (ICD-10-PCS; 2020-04-15)
PROC: 0JBQ0ZZ Excision of Right Foot Subcutaneous Tissue and Fascia, Open Approach (ICD-10-PCS; 2020-04-15)
PROC: 0HBRXZZ Excision of Toe Nail, External Approach (ICD-10-PCS; 2020-04-15)
DX: A41.9 Sepsis, unspecified organism (principal); E44.0 Moderate protein-calorie malnutrition; N39.0 Urinary tract infection, site not specified; F17.210 Nicotine dependence, cigarettes, uncomplicated; D50.9 Iron deficiency anemia, unspecified; Z59.0 Homelessness; Z90.49 Acquired absence of other specified parts of digestive tract; S81.802A Unspecified open wound, left lower leg, initial encounter; S81.801A Unspecified open wound, right lower leg, initial encounter; Z68.22 Body mass index [BMI] 22.0-22.9, adult; L03.116 Cellulitis of left lower limb; L03.115 Cellulitis of right lower limb; E11.621 Type 2 diabetes mellitus with foot ulcer; Z88.6 Allergy status to analgesic agent; Z91.018 Allergy to other foods; Z79.899 Other long term (current) drug therapy; L97.529 Non-pressure chronic ulcer of other part of left foot with unspecified severity; L97.519 Non-pressure chronic ulcer of other part of right foot with unspecified severity; B35.1 Tinea unguium; R60.9 Edema, unspecified; S92.402A Displaced unspecified fracture of left great toe, initial encounter for closed fracture; X58.XXXA Exposure to other specified factors, initial encounter; Y92.9 Unspecified place or not applicable; D47.3 Essential (hemorrhagic) thrombocythemia
CPT/HCPCS: 36415; 71045-TC; 73630-TC; 80048-TC; 80061-TC; 80076-TC; 80202-TC; 81000-TC; 83540-TC; 83605-TC; 83735-TC; 84100-TC; 84443-TC; 84702-TC; 84703-TC; 85025-TC; 85730-TC; 87040-TC; 87081-TC; 87086-TC; 87186-TC; 97530-TC; A4217; A6253; A6403; G0378; J1100; J1650; J2270; J2405; J2543; J3010; J3370; J3490; J7030; J7060; U0003